=== PATIENT | male | born 1940 | race Caucasian/White ===

== ENCOUNTER → 2017-07-13 | Outpatient (CLI) | payer OTHER ==
--- NOTE | 2017-07-17 12:11 | MRI ---
MRI left hip without contrast Indication: Chronic left hip pain. History of prostate cancer. Comparison: None available Technique: Multiplanar, multi sequence MR images of the left hip were obtained without contrast. Findings: There are szey-ws-wnlvkcoh degenerative changes of both hips associated with moderate diffu se chondrosis. There is subchondral marrow edema involving the posterior superior left femoral head, partially extending into the femoral neck. No discrete osseous lesion, cortical disruption, or bony m alalignment appreciated. Remaining marrow signal is otherwise unremarkable. There is small left hip joint effusion. No large loose intra-articular body appreciated. The ligament um teres is not identified. Linear fluid signal is noted along the superior labrum, suggesting labral tear. No significant paralabral cyst. Anterior labral fraying also noted. Mild edema about the dista l gluteus minimus and medius tendons noted, which are otherwise grossly intact. Colonic diverticulosis noted. Lumbar spine findings reported separately. Impression: 1. Left hip DJD with joint effusion. Subchondral marrow edema of the posterior superior femoral head is nonspecific, but may be related to chondrosis. This would be an atypical location for stress react ion, although this is not excluded. 2. Superior labral tear with anterior labral fraying, likely degenerative. 3. Mild gluteus minimus and medius tendinosis. 4. Diverticulosis. Reported By:
--- NOTE | 2017-07-17 12:30 | MRI ---
MRI OF THE LUMBAR SPINE WITHOUT IV CONTRAST CLINICAL INDICATION: Chronic low back pain TECHNIQUE: Pre-contrast sagittal T1-, T2-, and T2-w fat-saturated images, and axial T1- and T2-w imag es of the lumbar spine. COMPARISON: None. FINDINGS: For purposes of this dictation, it is assumed that there are 5 ajb-eas-ywsvreu, lumbar-type vertebrae , and the most caudal fully segmented lumbar vertebra is labeled L5. The lumbar spine demonstrates normal alignment. Vertebral bodies are normal in height. Hemangiomas ca n be seen in L3 and L4. There are perineural root sleeve cysts bilaterally at T11-T12 and on the righ t at T12-L1 and on the left at L1-L2. There also likely perineural sleeve cysts in the sacrum bilater ally at approximately S2-S3. Multilevel degenerative disc disease. The conus medullaris terminates at a normal level and the nerve roots of the cauda equina appear normal. The included paraspinal soft t issues and retroperitoneal structures are grossly normal. Evaluation of the individual levels demonstrates: L1-2: Mild disc bulge without central stenosis. On moderate to severe right-sided neural foraminal st enosis secondary to facet hypertrophy. L2-3: Bilateral facet hypertrophy and ligament flavum redundancy resulting in mild central stenosis a nd moderate bilateral neural foraminal stenosis. L3-4: Disc bulge, facet hypertrophy and ligamentum flavum redundancy resulting in moderate central st enosis and moderate bilateral neural foraminal stenosis. L4-5: Disc bulge, facet hypertrophy and ligamentum flavum redundancy resulting in moderate central st enosis, severe right and moderate left neural foraminal stenosis. L5-S1: Small disc bulge without central stenosis. Severe left-sided neural foraminal stenosis. IMPRESSION: 1. Severe multilevel degenerative disc disease and facet arthropathy resulting in varying degrees of stenosis as above. 2. 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 Reported By:
== END | disposition home or self-care (01) ==
LOC: RAD 13:55
PROVIDERS: ATTEND Internal Medicine
DX: M54.5 Low back pain (principal); M25.552 Pain in left hip; M25.452 Effusion, left hip; S73.192A Other sprain of left hip, initial encounter; X58.XXXA Exposure to other specified factors, initial encounter; M76.02 Gluteal tendinitis, left hip; K57.90 Diverticulosis of intestine, part unspecified, without perforation or abscess without bleeding; M51.36 Other intervertebral disc degeneration, lumbar region; M12.88 Other specific arthropathies, not elsewhere classified, other specified site; M48.061 Spinal stenosis, lumbar region without neurogenic claudication; M16.12 Unilateral primary osteoarthritis, left hip
CPT/HCPCS: 72148; 73721

== ENCOUNTER 2017-12-14 08:02 | Day surgery (SDC) | payer OTHER ==
[2017-12-14] MEDS ORDERED: D5 LR 1000 ML 1,000 ML IV ONE (08:18)
[2017-12-14] MEDS ORDERED: NS 1000 ML 1,000 ML ONE (08:47)
[2017-12-14] MEDS ORDERED: DIPRIVAN VIAL 20 ML ONE (09:42)
[2017-12-14 10:39] VITALS: BP 127/66
== END 2017-12-14 10:40 | disposition home or self-care (01) ==
LOC: SURG1 08:02
PROVIDERS: ATTEND Internal Medicine Gastroenterology
PROC: 0DJD8ZZ Inspection of Lower Intestinal Tract, Via Natural or Artificial Opening Endoscopic (ICD-10-PCS; principal; 2017-12-14 09:00)
PROC: 0DBP8ZX Excision of Rectum, Via Natural or Artificial Opening Endoscopic, Diagnostic (ICD-10-PCS; principal; 2017-12-14 09:00)
PROC: 0DBN8ZX Excision of Sigmoid Colon, Via Natural or Artificial Opening Endoscopic, Diagnostic (ICD-10-PCS; principal; 2017-12-14 09:00)
DX: K63.5 Polyp of colon (principal); K57.30 Diverticulosis of large intestine without perforation or abscess without bleeding; K64.0 First degree hemorrhoids; Z86.010 Personal history of colon polyps
CPT/HCPCS: 99100; A4217; J3490; J7120

== ENCOUNTER 2019-03-04 13:57 | Observation (INO) ==
[2019-03-04 14:08] VITALS: BMI 27.2
[2019-03-04 14:43] LABS: BASOPHILS # (AUTO) 0.1 X10^3/uL (0.0-0.1); EOSINOPHILS # (AUTO) 0.1 x10^3/uL (0.0-0.2); EOSINOPHILS % (AUTO) 1.5 % (0.9-2.9); HEMATOCRIT 43.4 % (42.0-54.0); LYMPHOCYTES # (AUTO) 1.8 X10^3/uL (1.3-2.9); MEAN CORPUSCULAR HEMOGLOBIN 31.4 pg (27.0-34.0); MEAN CORPUSCULAR HGB CONC 34.6 g/dL (33.0-35.0); MEAN CORPUSCULAR VOLUME 90.6 fL (80.0-100.0); MEAN PLATELET VOLUME 8.3 fL (7.4-11.0); MONOCYTES # (AUTO) 0.6 x10^3/uL (0.3-0.8); NEUTROPHILS # (AUTO) 6.9 x10^3/uL (2.2-4.8); NEUTROPHILS % (AUTO) 72.5 % (42.0-75.0); PLATELET COUNT 227 X10^3/uL (150.0-450.0); RED BLOOD COUNT 4.79 X10^6/uL (4.7-6.0); RED CELL DISTRIBUTION WIDTH 13.5 % (11.6-16.5); WHITE BLOOD COUNT 9.6 X10^3/uL (3.6-10.0)
--- NOTE | 2019-03-04 14:44 | DR.SOBA ---
HPI Time Seen Time Seen by Provider: 03/04/19 14:17 Primary Care Physician Primary Care Physician: STERLING HPI Comment HPI Comment: PATIENT IS 79YR OLD WHITE MALE WITH HISTORY OF HYPERTENSION, DM AND PROSTATE CA HERE IN THE EMERGENCY ROOM WITH SOB AND CHEST PAIN SINCE MONDAY. TODAY , AROUND 11:00AM, PATIENT WAS PLANTING SOME VEGETABBLES, HE WAS WATERING THE PLANTS WHEN HE SUDDENLY BECAME DIZZY, DIAPHORETIC AND FELT FAINT.HE FINALLY WENT INSIDE AND SAT DOWN. HE STILL DONT FEEL HIS USUAL SELF. HE IS WEAK AND DRAIN OF ENERGY.HE DENIES FEVER AND DYSURIA, HE IS NAUSEATED BUT NOT VOMITING. Complaints Chief Complaint Doctors Comments: CHEST PAIN, SOB SINCE MONDAY. Chief Complaint:: PATIENT STATED THAT HE STARTED HAVING CHEST PAIN THAT STARTED MONDAY AND SHORTNESS OF BREATH. THE SOB BECAME WORSE WHEN DRIVING OVER FROM [employer]. HE ALSO STATED THAT HE BECAME DIZZY AND SWEATY WHILE OUTSIDE BETWEEN -. PT IS 100% ON ROOM AIR. Reviewed Nurses Notes Reviewed: Yes Source History Provided: Patient Mode of Arrival Mode of Arrival: Ambulatory Timing Onset of Chief Complaint: 03/01/19 Duration Duration: Days Context Onset:: With Light Exertion PE Risk Factors:: denies Recent Trauma, Recent Surgery and Immobilization PMH PMH Past Medical History: Yes Past Medical History: Diabetes and Hypertension Past Medical History Comment: PROSTATE CANCER Past Surgical History: Yes Surgical History: Ortho Surgery and Other Past Surgical History Comment: HERNIA REPAIR, PROSTATE CANCER REMOVED Family History History of Family Medical Conditions: No Social History Does patient currently use any type of tobacco product: No Have you used tobacco products in the last 12 months: No Type of Tobacco Use: None Does any household member use tobacco: No Alcohol Use: None Do you use any recreational Drugs:: No Lives With: Family Lives Where: Home infectious screening In the last 2 months have you had wt loss of >10#?: NO Have you had fever, night sweats or hemotysis?: No Have you traveled outside the country in the last 6 months?: No Isolation: Standard PE Vital Signs Vitals: Temperature 98.2 F Pulse Rate [Apical] 94 Pulse Rate 119 Respiratory Rate 15 Blood Pressure [Left Arm] 131/74 Blood Pressure 130/59 O2 Sat by Pulse Oximetry 96 ROR Labs Reviewed Result Diagrams: 03/04/19 14:35 03/04/19 14:35 Laboratory: WBC 9.6 X10^3/uL (3.6-10.0) 03/04/19 14:35 RBC 4.79 X10^6/uL (4.7-6.0) 03/04/19 14:35 Hgb 15.0 g/dL (13.5-18.0) 03/04/19 14:35 Hct 43.4 % (42.0-54.0) 03/04/19 14:35 MCV 90.6 fL (80.0-100.0) 03/04/19 14:35 MCH 31.4 pg (27.0-34.0) 03/04/19 14:35 MCHC 34.6 g/dL (33.0-35.0) 03/04/19 14:35 RDW 13.5 % (11.6-16.5) 03/04/19 14:35 Plt Count 227 X10^3/uL (150.0-450.0) 03/04/19 14:35 MPV 8.3 fL (7.4-11.0) 03/04/19 14:35 Neut % (Auto) 72.5 % (42.0-75.0) 03/04/19 14:35 Lymph % (Auto) 19.0 % (21.0-51.0) L 03/04/19 14:35 [place] % (Auto) 6.0 % (0.0-13.0) 03/04/19 14:35 Eos % (Auto) 1.5 % (0.9-2.9) 03/04/19 14:35 Baso % (Auto) 1.0 % (0.2-1.0) 03/04/19 14:35 Neut # (Auto) 6.9 x10^3/uL (2.2-4.8) H 03/04/19 14:35 Lymph # (Auto) 1.8 X10^3/uL (1.3-2.9) 03/04/19 14:35 [place] # (Auto) 0.6 x10^3/uL (0.3-0.8) 03/04/19 14:35 Eos # (Auto) 0.1 x10^3/uL (0.0-0.2) 03/04/19 14:35 Baso # (Auto) 0.1 X10^3/uL (0.0-0.1) 03/04/19 14:35 Absolute Nucleated RBC 0.0 /100WBC 03/04/19 14:35 D-Dimer 232 ng/mL (0-400) 03/04/19 14:35 Sodium 141 mmol/L (136-145) 03/04/19 14:35 Corrected Sodium 143 mmol/L (136-145) 03/04/19 14:35 Potassium 4.0 mmol/L (3.5-5.1) 03/04/19 14:35 Chloride 105 mmol/L (98-107) 03/04/19 14:35 Carbon Dioxide 27.9 mmol/L (21-32) 03/04/19 14:35 BUN 24 mg/dL (7-18) H 03/04/19 14:35 Creatinine 1.60 mg/dL (0.70-1.30) H 03/04/19 14:35 Est GFR (MDRD) Af Amer 54 (>60) L 03/04/19 14:35 Est GFR (MDRD) Non-Af 44 (>60) L 03/04/19 14:35 Glucose 173 mg/dL (65-99) H 03/04/19 14:35 Calcium 10.2 mg/dL (8.5-10.1) H 03/04/19 14:35 Corrected Calcium TNP 03/04/19 14:35 Total Bilirubin 0.60 mg/dL (0.2-1.0) 03/04/19 14:35 AST 12 Units/L (15-37) L 03/04/19 14:35 ALT 15 Units/L (12-78) 03/04/19 14:35 Alkaline Phosphatase 86 Units/L (46-116) 03/04/19 14:35 Creatine Kinase 54 Units/L (39-308) 03/04/19 14:35 CK-MB (CK-2) 1.0 ng/mL (0-4.0) 03/04/19 14:35 CK/CKMB % Calc 1.9 % (<4) 03/04/19 14:35 Troponin I < 0.02 ng/mL (0-1.5) 03/04/19 14:35 B-Natriuretic Peptide 122 pg/mL (0-79) H 03/04/19 14:35 Total Protein 6.8 g/dL (6.4-8.2) 03/04/19 14:35 Albumin 3.6 g/dL (3.4-5.0) 03/04/19 14:35 Globulin 3.2 g/dL (2.5-4.5) 03/04/19 14:35 Albumin/Globulin Ratio 1.1 Ratio (1.1-2.1) 03/04/19 14:35 Diagnosis Discharge Problem: SOB (shortness of breath), New onset atrial fibrillation Chest pain Qualifiers: Chest pain type: precordial pain Qualified Code(s): R07.2 - Precordial pain
--- NOTE | 2019-03-04 14:54 | RAD ---
HISTORY: Chest pain Study: Single-view chest Comparison: No Priors Findings: Trachea is midline. Heart size is upper normal with aortic uncoiling and atherosclerotic calcification the aortic arch. There is elevation of the right hemidiaphragm with very mild linear increased markings in the lung bases which may represent subsegmental foci of atelectasis. No dense consolidation, CHF, pleural fluid or pneumothorax is seen. Osseous structures are intact. There is multilevel thoracic spondylosis. IMPRESSION: Hypertensive configuration. Elevation of the left hemidiaphragm with bibasilar foci of subsegmental atelectasis. No dense consolidation, CHF, pleural fluid or pneumothorax is seen Reported By:
[2019-03-04 15:04] LABS: BLOOD UREA NITROGEN 24 mg/dL (7-18); CALCIUM 10.2 mg/dL (8.5-10.1); CARBON DIOXIDE 27.9 mmol/L (21-32); CHLORIDE 105 mmol/L (98-107); COR NA(FOR HYPERGLY) 143 mmol/L (136-145); SODIUM 141 mmol/L (136-145); TROPONIN I < 0.02 ng/mL (0-1.5); eGFR NON BLACK RACES 44 (>60)
[2019-03-04 15:08] LABS: ALANINE AMINOTRANSFERASE 15 Units/L (12-78); ALBUMIN 3.6 g/dL (3.4-5.0); ALKALINE PHOSPHATASE 86 Units/L (46-116); ASPARTATE AMINO TRANSFERASE 12 Units/L (15-37); CKMB % 1.9 % (<4); CREATINE KINASE 54 Units/L (39-308); TOTAL PROTEIN 6.8 g/dL (6.4-8.2)
[2019-03-04 15:10] LABS: B-TYPE NATRIURETIC PEPTIDE 122 pg/mL (0-79)
[2019-03-04] MEDS ORDERED: NORCO 7.5/325 MG TAB PO PRN (17:57)
[2019-03-04] MEDS ORDERED: NS 1000 ML 1,000 ML IV SCH (18:00)
[2019-03-04 19:21] LABS: BILIRUBIN,URINE NEGATIVE (NEGATIVE); BLOOD/HEMOGLOBIN,URINE NEGATIVE (NEGATIVE); GLUCOSE, URINE NEGATIVE (NEGATIVE); KETONES,URINE NEGATIVE (NEGATIVE); LEUKOCYTE ESTERASE ,URINE 1+ (NEGATIVE); NITRITES,URINE NEGATIVE (NEGATIVE); PROTEIN,URINE 1+ (NEGATIVE); UROBILINOGEN,URINE 1+ (NORMAL)
[2019-03-04 19:22] LABS: APPEARANCE,URINE SLIGHTLY HAZY (CLEAR); COLOR,URINE YELLOW (YELLOW)
[2019-03-04 19:27] LABS: BACTERIA,URINE TRACE /HPF (NEGATIVE); MUCUS,URINE MODERATE /HPF (NEGATIVE); RBC,URINE 0-2 /HPF (NONE SEEN); SQUAMOUS EPITHELIAL CELL,UR NEGATIVE /HPF (NEGATIVE)
[2019-03-04] MEDS ORDERED: LIPITOR TAB 10 MG PO SCH (21:00)
[2019-03-04] MEDS ORDERED: FLOMAX PO SCH (21:00)
[2019-03-04 21:12] LABS: CKMB % 2.6 % (<4); CREATINE KINASE 43 Units/L (39-308); CREATINE KINASE MB 1.1 ng/mL (0-4.0); TROPONIN I < 0.02 ng/mL (0-1.5)
[2019-03-04] MEDS: GLUCOPHAGE XR PO SCH (21:14)
[2019-03-05 02:57] LABS: CKMB % 2.4 % (<4); CREATINE KINASE 41 Units/L (39-308); CREATINE KINASE MB < 1.0 ng/mL (0-4.0); TROPONIN I < 0.02 ng/mL (0-1.5)
[2019-03-05 05:21] LABS: BASOPHILS # (AUTO) 0.1 X10^3/uL (0.0-0.1); EOSINOPHILS # (AUTO) 0.2 x10^3/uL (0.0-0.2); EOSINOPHILS % (AUTO) 2.1 % (0.9-2.9); HEMATOCRIT 41.8 % (42.0-54.0); HEMOGLOBIN 14.5 g/dL (13.5-18.0); LYMPHOCYTES # (AUTO) 2.8 X10^3/uL (1.3-2.9); LYMPHOCYTES % (AUTO) 34.1 % (21.0-51.0); MEAN CORPUSCULAR HEMOGLOBIN 31.5 pg (27.0-34.0); MEAN CORPUSCULAR HGB CONC 34.7 g/dL (33.0-35.0); MEAN CORPUSCULAR VOLUME 90.8 fL (80.0-100.0); MEAN PLATELET VOLUME 9.1 fL (7.4-11.0); MONOCYTES # (AUTO) 0.7 x10^3/uL (0.3-0.8); MONOCYTES % (AUTO) 8.4 % (0.0-13.0); NEUTROPHILS # (AUTO) 4.4 x10^3/uL (2.2-4.8); NEUTROPHILS % (AUTO) 54.4 % (42.0-75.0); PLATELET COUNT 191 X10^3/uL (150.0-450.0); RED BLOOD COUNT 4.61 X10^6/uL (4.7-6.0); RED CELL DISTRIBUTION WIDTH 13.8 % (11.6-16.5); WHITE BLOOD COUNT 8.1 X10^3/uL (3.6-10.0)
[2019-03-05 05:30] LABS: ALANINE AMINOTRANSFERASE 15 Units/L (12-78); ALBUMIN 3.2 g/dL (3.4-5.0); ALKALINE PHOSPHATASE 78 Units/L (46-116); ASPARTATE AMINO TRANSFERASE 11 Units/L (15-37); BLOOD UREA NITROGEN 22 mg/dL (7-18); CALCIUM 9.6 mg/dL (8.5-10.1); CARBON DIOXIDE 32.9 mmol/L (21-32); CHLORIDE 106 mmol/L (98-107); CHOL/HDL RATIO 2.7 (0.0-5.0); CHOLESTEROL 116 mg/dL (0-200); COR CA(FOR HYPOALB) 10.2 mg/dL (8.5-10.1); COR NA(FOR HYPERGLY) 144 mmol/L (136-145); CREATININE 1.35 mg/dL (0.70-1.30); HDL CHOLESTEROL 43 mg/dL (40-60); SODIUM 143 mmol/L (136-145); TOTAL PROTEIN 6.2 g/dL (6.4-8.2); TRIGLYCERIDES 66 mg/dL (0-150); eGFR NON BLACK RACES 54 (>60)
[2019-03-05 05:38] LABS: CKMB % 2.5 % (<4); CREATINE KINASE 40 Units/L (39-308); TROPONIN I < 0.02 ng/mL (0-1.5)
[2019-03-05] MEDS ORDERED: ASPIRIN EC 81 MG PO SCH (09:00)
[2019-03-05] MEDS ORDERED: HYZAAR 50/12.5 MG PO SCH (09:00)
[2019-03-05] MEDS ORDERED: NORVASC TAB 10 MG PO SCH (09:00)
[2019-03-05] MEDS ORDERED: COREG TAB 3.125 MG PO SCH (09:00)
--- NOTE | 2019-03-05 10:20 | DR.CARTERS ---
Short Stay Summary - Admission Date Date of Admission: 03/04/19 - Discharge Date Discharge Date: 03/05/19 - Admission Diagnoses (1) Chest pain Status: Acute (2) SOB (shortness of breath) Status: Acute (3) New onset atrial fibrillation Status: Acute - Hospital Course Hospital Course: IS A 79 YEAR OLD PATIENT OF OURS WHO PRESENTED TO THE ER WITH COMPLAINTS OF CHEST PAIN AND SHORTNESS OF BREATH. SYMPTOMS STARTED THREE DAYS AGO AND HAVE PROGRESSIVELY GOTTEN WORSE. HE ALSO REPORTS BECOMING DIZZINESS, DIAPHORETIC, AND FEELING FAINT. PATIENT STATES THAT HE WAS OUTSIDE PLANTING VEGETABLES WHEN SYMPTOMS BECAME WORSE TODAY. ON ARRIVAL, VITALS WERE 98.8-493-28-100%-130/59. LABS WERE OBTAINED. ABNORMAL LAB VALUES INCLUDED THE FOLLOWING: BUN 24, CREATININE 1.60, GLUCOSE 173, CALCIUM 10.2, AST 12, BNP 122. CARDIAC ENZYMES WITHIN NORMAL LIMITS. AN EKG WAS OBTAINED AND REVEALED: ATRIAL FIBRILLATION WITH HR 108. CHEST XRAY REVEALED: Hypertensive configuration. Elevation of the left hemidiaphragm with bibasilar foci of subsegmental atelectasis. No dense consolidation, CHF, pleural fluid or pneumothorax is seen. HE WAS ADMITTED TO THE HOSPITAL FOR FURTHER EVALUATION AND TREATMENT OF CHEST PAIN, SHORTNESS OF BREATH, AND NEW ONSET A-FIB. WE STARTED NORMAL SALINE AT 50ML/HR, RESUMED HOME MEDICATIONS, AND WILL PLACE HIM ON THE CORRESPONDENCE DICTATOR. OTHERWISE, WE PLAN TO FOLLOW UP WITH AM LABS AND CONTINUE TO MONITOR. ON THE MORNING FOLLOWING ADMISSION, PATIENT IS ALERT AND ORIENTED, LYING IN BED ON MORNING ROUNDS. HE REPORTS FEELING WELL. HE DENIES CHEST PAIN OR SHORTNESS OF BREATH. ON EXAMINATION, HE IS NOTED WITH ATRIAL FIBRILLATION ON AUSCULTATION, NORMAL RATE. BILATERAL LUNGS ARE CLEAR TO AUSCULTATION. ABDOMEN IS ROUND, SOFT, AND NON-TENDER. HIS VITALS THIS MORNING ARE 98.7-96-22-97%-125/72. ABNORMAL LAB VALUES INCLUDE THE FOLLOWING: RBC 4.61, HCT 41.8, CARBON DIOXIDE 32.9, BUN 22, CREATININE 1.35, GLUCOSE 146, CORRECTED CALCIUM 10.2, AST 11, TOTAL PROTEIN 6.2, ALBUMIN 3.2. CARDIAC ENZYMES WITHIN NORMAL LIMITS. THIS MORNINGS EKG REVEALED: ATRIAL FIBRILLATION WITH HR 108. - Discharge Medications Discharge Medications: Home Medication List amlodipine 10 mg PO DAILY 03/04/19 [History] hydrocodone-acetaminophen [[place]] 0.5 - 1 tab PO BID PRN 03/04/19 [History] losartan-hydrochlorothiazide 1 tab PO DAILY 03/04/19 [History] metformin 1,000 mg PO BID 03/04/19 [History] tamsulosin 0.4 mg PO HS 03/04/19 [History] aspirin [Ecotrin] 325 mg PO QDAY #90 tab 03/05/19 [Rx] losartan-hydrochlorothiazide [Hyzaar] 1 tab PO QDAY #30 tab 03/05/19 [Rx] metformin 500 mg PO BID #60 tab 03/05/19 [Rx] metoprolol succinate [Toprol XL] 25 mg PO QDAY #30 tab 03/05/19 [Rx] verapamil 120 mg PO QDAY #30 tab 03/05/19 [Rx] Prescriptions: aspirin [Ecotrin] Chad George losartan-hydrochlorothiazide [Hyzaar] Chad George metformin Chad George metoprolol succinate [Toprol XL] Chad George verapamil Chad George - Discharge Plan Disposition: HOME, SELF-CARE Condition: Stable Prescriptions: aspirin [Ecotrin] 325 mg PO QDAY #90 tab losartan-hydrochlorothiazide [Hyzaar] 1 tab PO QDAY #30 tab metformin 500 mg PO BID #60 tab metoprolol succinate [Toprol XL] 25 mg PO QDAY #30 tab verapamil 120 mg PO QDAY #30 tab - Follow up/Referrals Follow up/Referrals: Chad George [Primary Care Provider] - 1 WEEK - Instructions Additional Instructions: DIET TOLERATED. ACTIVITY TOLERATED. Forms: Patient Portal
[2019-03-05] MEDS: GLUCOPHAGE XR PO SCH (11:35)
[2019-03-05 15:50] VITALS: BP 141/67
== END 2019-03-05 16:15 | disposition home or self-care (01) ==
LOC: ER 13:57 → ICU 13:57
PROVIDERS: ADMIT Internal Medicine; ATTEND Internal Medicine
DX: E11.65 Type 2 diabetes mellitus with hyperglycemia; I48.91 Unspecified atrial fibrillation; R06.02 Shortness of breath; R94.31 Abnormal electrocardiogram [ECG] [EKG]; R94.4 Abnormal results of kidney function studies; I10 Essential (primary) hypertension; R42 Dizziness and giddiness; R07.2 Precordial pain; Z79.899 Other long term (current) drug therapy
CPT/HCPCS: 36415; 71010; 71045; 80053; 80061; 81001; 82550; 82553; 83880; 84484; 85025; 85378; 85610; 85730; 93005; 93306; 96365; 99284; A4222; G0378; J7030

== ENCOUNTER 2021-09-27 12:58 | Observation (INO) ==
[2021-09-27] MEDS ORDERED: TORADOL 30 MG VIAL IVP PRN (17:18)
[2021-09-27] MEDS ORDERED: ZOSYN VIAL 3.375 GRAMS 3.375 G in NS 100 ML IV + SPIKE MINIBAG* 100 ML IV SCH (17:18)
[2021-09-27 17:56] LABS: BASOPHILS # (AUTO) 0.1 X10^3/uL (0.0-0.1); BASOPHILS % (AUTO) 1.2 % (0.2-1.0); EOSINOPHILS # (AUTO) 0.3 x10^3/uL (0.0-0.2); EOSINOPHILS % (AUTO) 3.8 % (0.9-2.9); HEMATOCRIT 41.3 % (42.0-54.0); HEMOGLOBIN 13.7 g/dL (13.5-18.0); LYMPHOCYTES # (AUTO) 1.5 X10^3/uL (1.3-2.9); LYMPHOCYTES % (AUTO) 19.4 % (21.0-51.0); MEAN CORPUSCULAR HEMOGLOBIN 27.7 pg (27.0-34.0); MEAN CORPUSCULAR HGB CONC 33.1 g/dL (33.0-35.0); MEAN CORPUSCULAR VOLUME 83.7 fL (80.0-100.0); MEAN PLATELET VOLUME 8.2 fL (7.4-11.0); MONOCYTES # (AUTO) 0.7 x10^3/uL (0.3-0.8); MONOCYTES % (AUTO) 8.9 % (0.0-13.0); NEUTROPHILS # (AUTO) 5.3 x10^3/uL (2.2-4.8); NEUTROPHILS % (AUTO) 66.7 % (42.0-75.0); PLATELET COUNT 243 X10^3/uL (150.0-450.0); RED BLOOD COUNT 4.94 X10^6/uL (4.7-6.0); RED CELL DISTRIBUTION WIDTH 15.3 % (11.6-16.5); WHITE BLOOD COUNT 7.9 X10^3/uL (3.6-10.0)
[2021-09-27 18:10] LABS: ALBUMIN 3.3 g/dL (3.4-5.0); CALCIUM 9.5 mg/dL (8.5-10.1); CARBON DIOXIDE 27.9 mmol/L (21-32); COR CA(FOR HYPOALB) 10.1 mg/dL (8.5-10.1); CREATININE 1.67 mg/dL (0.70-1.30); TOTAL PROTEIN 7.5 g/dL (6.4-8.2)
[2021-09-27 18:15] VITALS: BMI 27.7
[2021-09-27] MEDS: NS 1,000 ML IV 1,000 ML IV SCH (18:28)
[2021-09-27] MEDS: ZOSYN VIAL 3.375 GRAMS 3.375 G in NS 100 ML IV + SPIKE MINIBAG* 100 ML IV SCH (21:07)
[2021-09-28] MEDS: ZOSYN VIAL 3.375 GRAMS 3.375 G in NS 100 ML IV + SPIKE MINIBAG* 100 ML IV SCH ×3 (05:09→21:11)
[2021-09-28 05:21] LABS: BASOPHILS # (AUTO) 0.1 X10^3/uL (0.0-0.1); BASOPHILS % (AUTO) 1.1 % (0.2-1.0); EOSINOPHILS # (AUTO) 0.3 x10^3/uL (0.0-0.2); EOSINOPHILS % (AUTO) 4.8 % (0.9-2.9); HEMATOCRIT 36.2 % (42.0-54.0); HEMOGLOBIN 12.2 g/dL (13.5-18.0); LYMPHOCYTES # (AUTO) 1.5 X10^3/uL (1.3-2.9); LYMPHOCYTES % (AUTO) 20.2 % (21.0-51.0); MEAN CORPUSCULAR HEMOGLOBIN 27.8 pg (27.0-34.0); MEAN CORPUSCULAR HGB CONC 33.6 g/dL (33.0-35.0); MEAN CORPUSCULAR VOLUME 82.9 fL (80.0-100.0); MEAN PLATELET VOLUME 8.2 fL (7.4-11.0); MONOCYTES # (AUTO) 0.6 x10^3/uL (0.3-0.8); MONOCYTES % (AUTO) 8.5 % (0.0-13.0); NEUTROPHILS # (AUTO) 4.7 x10^3/uL (2.2-4.8); NEUTROPHILS % (AUTO) 65.4 % (42.0-75.0); PLATELET COUNT 224 X10^3/uL (150.0-450.0); RED BLOOD COUNT 4.37 X10^6/uL (4.7-6.0); RED CELL DISTRIBUTION WIDTH 15.1 % (11.6-16.5); WHITE BLOOD COUNT 7.3 X10^3/uL (3.6-10.0)
[2021-09-28 05:33] LABS: ALANINE AMINOTRANSFERASE 12 Units/L (12-78); ALBUMIN 2.5 g/dL (3.4-5.0); ALKALINE PHOSPHATASE 74 Units/L (46-116); ASPARTATE AMINO TRANSFERASE 14 Units/L (15-37); BLOOD UREA NITROGEN 17 mg/dL (7-18); CALCIUM 8.4 mg/dL (8.5-10.1); CARBON DIOXIDE 27.2 mmol/L (21-32); CHLORIDE 105 mmol/L (98-107); COR CA(FOR HYPOALB) 9.6 mg/dL (8.5-10.1); COR NA(FOR HYPERGLY) 138 mmol/L (136-145); CREATININE 1.42 mg/dL (0.70-1.30); SODIUM 138 mmol/L (136-145); TOTAL PROTEIN 5.9 g/dL (6.4-8.2); eGFR NON BLACK RACES 51 (>60)
[2021-09-28] MEDS: NS 1,000 ML IV 1,000 ML IV SCH ×2 (06:35→19:57)
--- NOTE | 2021-09-28 08:08 | VAS ---
HISTORYRT ARM SWELLING/PAINSTUDYUPPER EXT VENOUS, UNILATERALCOMPARISONNoneTECHNIQUEMultipl e burger scale and color flow Doppler images of the deep venous system were obtained of the right upper extremity.FINDINGSThe deep venous system of the right upper extremity and right jugular vein were examined with Doppler ultrasound. Normal color flow and augmentation can be observed in the right jugular vein right subclavian vein axillary vein brachial vein radial and ulnar veins.. In addition, normal compression is seen throughout the deep venous system.IMPRESSIONNegative for DVT in the right upper extremity and in the right jugular vein.Electronically signed by: MANISH YUEN (Sep 28, 2021 08:07:19)
--- NOTE | 2021-09-28 08:39 | DR.UPDATE ---
H&P Update History and Physical Update: History and Physical reviewed and patient examined. Changes noted: Yes with the following: HAS BEEN TREATED IN THE OFFICE FOR THE PAST WEEK FOR RIGHT UPPER EXTREMITY CELLULITIS. HE WAS PLACED ON BACTRIM DS 1 TABLET TWICE A DAY ON 09/21/21. HE DENIES IMPROVEMENT IN SYMPTOMS DESPITE COMPLIANCE WITH MEDICATIONS. HE WAS ADMITTED TO THE HOSPITAL FOR FURTHER EVALUATION AND TREATMENT. ON ARRIVAL TO THE HOSPITAL, HIS VITALS WERE 98.1-67-20-95%-149/67. LABS WERE OBTAINED. WBC WITHIN NORMAL LIMITS. ABNORMAL LAB VALUES INCLUDE THE FOLLOWING: HCT 41.3, BUN 19, CREATININE 1.67, GLUCOSE 111, AST 13, CRP 36.20, ALBUMIN 3.3. COVID-19 NEGATIVE. BLOOD CULTURE WAS SET UP. A VENOUS DOPPLER OF THE RIGHT UPPER EXTREMITY WAS OBTAINED AND REVEALED: Negative for DVT in the right upper extremity and in the right jugular vein. HE WAS STARTED ON NORMAL SALINE AT 80 ML/HR, ZOSYN 3.375G IV TID, TORADOL 30MG IV Q8H PRN. WE WILL REVIEW HIS HOME MEDICATIONS AND RESUME APPROPRIATE. OTHERWISE, WE PLAN TO FOLLOW UP WITH AM LABS AND CONTINUE TO MONITOR. TIME SPENT ON CLINICAL ASSESSMENT, REVIEWING LABS AND IMAGING, DECISION MAKING, AND DOCUMENTATION GREATER THAN 75 MINUTES. Prescription drug monitoring program results: PDMP was not reviewed H&P Reviewed: Yes Patient was examined?: Yes
[2021-09-28] MEDS ORDERED: NORCO 7.5/325 MG TAB PO PRN (08:40)
[2021-09-28] MEDS: PROTONIX TAB 40 MG PO SCH ×2 (09:32→20:43)
[2021-09-28] MEDS: NORVASC TAB 5 MG PO SCH (09:32)
[2021-09-28] MEDS: LOVENOX INJ 40 MG SYR SC SCH (09:32)
[2021-09-28] MEDS: HYZAAR 50/12.5 MG PO SCH (10:41)
[2021-09-28] MEDS: TOPROL XL PO SCH (10:41)
[2021-09-28] MEDS: OXYBUTYNIN CHLORIDE ER PO SCH (10:41)
[2021-09-28] MEDS: BENADRYL CAP/TAB 25 MG PO SCH ×3 (10:41→20:42)
--- NOTE | 2021-09-28 10:55 | RAD ---
HISTORYRIGHT ARM PAIN/CELLULITISSTUDYHUMERUS, RIGHT x-ray two viewsCOMPARISONNoneFINDINGSNo fracture or dislocation.Likely subcutaneous edema in the lower arm near the elbow. No gas or radiopaque foreign body is seen.No arthritic change are seen.IMPRESSIONSoft tissue swelling is likely present in the lower arm without evidence of bony abnormality.Electronically signed by: Everton Cullen (Sep 28, 2021 10:53:50)
--- NOTE | 2021-09-28 10:56 | RAD ---
HISTORYPain cellulitisSTUDYRight forearm two viewsCOMPARISONRight elbow 06/09/2019FINDINGSNormal appearance right radius and ulna without evidence for fracture, osteomyelitis or other acute abnormality. Small olecranon enthesophyte incidentally noted.IMPRESSIONNo acute osseous abnormality demonstrated right forearm.Electronically signed by: SHANI IRIZARRY (Sep 28, 2021 10:55:43)
[2021-09-28] MEDS ORDERED: FLOMAX PO SCH (21:00)
[2021-09-28] MEDS ORDERED: LIPITOR TAB 10 MG PO SCH (21:00)
[2021-09-29 04:54] LABS: BASOPHILS # (AUTO) 0.1 X10^3/uL (0.0-0.1); BASOPHILS % (AUTO) 1.2 % (0.2-1.0); EOSINOPHILS # (AUTO) 0.5 x10^3/uL (0.0-0.2); EOSINOPHILS % (AUTO) 7.6 % (0.9-2.9); HEMATOCRIT 36.7 % (42.0-54.0); HEMOGLOBIN 12.3 g/dL (13.5-18.0); LYMPHOCYTES # (AUTO) 1.8 X10^3/uL (1.3-2.9); LYMPHOCYTES % (AUTO) 26.3 % (21.0-51.0); MEAN CORPUSCULAR HGB CONC 33.6 g/dL (33.0-35.0); MEAN CORPUSCULAR VOLUME 83.4 fL (80.0-100.0); MEAN PLATELET VOLUME 8.2 fL (7.4-11.0); MONOCYTES # (AUTO) 0.6 x10^3/uL (0.3-0.8); MONOCYTES % (AUTO) 9.1 % (0.0-13.0); NEUTROPHILS # (AUTO) 3.9 x10^3/uL (2.2-4.8); NEUTROPHILS % (AUTO) 55.8 % (42.0-75.0); PLATELET COUNT 206 X10^3/uL (150.0-450.0); WHITE BLOOD COUNT 6.9 X10^3/uL (3.6-10.0)
[2021-09-29] MEDS: ZOSYN VIAL 3.375 GRAMS 3.375 G in NS 100 ML IV + SPIKE MINIBAG* 100 ML IV SCH (05:03)
[2021-09-29 05:07] LABS: ALANINE AMINOTRANSFERASE 11 Units/L (12-78); ALBUMIN 2.5 g/dL (3.4-5.0); ALKALINE PHOSPHATASE 71 Units/L (46-116); ASPARTATE AMINO TRANSFERASE 12 Units/L (15-37); BLOOD UREA NITROGEN 14 mg/dL (7-18); CALCIUM 8.3 mg/dL (8.5-10.1); CARBON DIOXIDE 24.4 mmol/L (21-32); CHLORIDE 106 mmol/L (98-107); COR CA(FOR HYPOALB) 9.5 mg/dL (8.5-10.1); COR NA(FOR HYPERGLY) 137 mmol/L (136-145); CREATININE 1.41 mg/dL (0.70-1.30); SODIUM 137 mmol/L (136-145); TOTAL PROTEIN 5.8 g/dL (6.4-8.2); eGFR NON BLACK RACES 51 (>60)
--- NOTE | 2021-09-29 08:34 | PCM.PROG ---
Progress Note - Progress Note for Day of Date of Exam: 09/28/21 - Subjective Subjective: WAS ADMITTED FOR TREATMENT OF RIGHT UPPER EXTREMITY CELLULITIS. TODAY, HE IS ALERT AND ORIENTED, LYING IN BED ON MORNING ROUNDS. HE CONTINUES WITH PAIN TO THE LEFT ARM. ON EXAMINATION, HEART IS REGULAR IN RATE AND RHYTHM. BILATERAL LUNGS ARE CLEAR TO AUSCULTATION. ABDOMEN IS ROUND, SOFT, AND NON-TENDER WITH NORMAL BOWEL SOUNDS NOTED IN ALL QUADRANTS. ERYTHEMA AND EDEMA TO RIGHT ARM HAVE MARKEDLY DECREASED SINCE ADMISSION. HIS VITALS THIS MORNING ARE: 97.9-61-20-94%-145/72. LABS WERE OBTAINED. ABNORMAL LAB VALUES INCLUDE THE FOLLOWING: RBC 4.37, HGB 12.2, HCT 36.2, CREATININE 1.42, GLUCOSE 112, CALCIUM 8.4, AST 14, TOTAL PROTEIN 5.9, ALBUMIN 2.5. BLOOD CULTURE IS PENDING. WE OBTAINED A FOREARM XRAY TODAY. IT REVEALED: No acute osseous abnormality demonstrated right forearm. HUMERUS XRAY REVEALED: Soft tissue swelling is likely present in the lower arm without evidence of bony abnormality. HE IS CURRENTLY RECEIVING NORMAL SALINE AT 80 ML/HR, ZOSYN 3.375G IV TID, TORADOL 30MG IV Q8H PRN, AND HIS HOME MEDICATIONS WERE RESUMED. WE WILL CONTINUE WITH CURRENT PLAN OF CARE TODAY. OTHERWISE, WE PLAN TO FOLLOW UP WITH AM LABS AND CONTINUE TO MONITOR. TIME SPENT ON CLINICAL ASSESSMENT, REVIEWING LABS AND IMAGING, DECISION MAKING, AND DOCUMENTATION GREATER THAN 45 MINUTES. - Past Medical Family Social History Past Med/Fam/Surg Hx: No changes since H&P Allergies: Allergies No Known Drug Allergies Allergy (Verified 08/17/21 07:59) - Review of Systems ROS: No change since H&P - Vital Signs and I&O's Vital Signs: Temperature 98.3 F Pulse Rate [Left Radial] 54 Respiratory Rate 20 Blood Pressure [Left Arm] 159/75 Blood Pressure 158/80 O2 Sat by Pulse Oximetry 97 Intake and Output: Intake & Output 09/26/21 09/27/21 09/28/21 09/29/21 11:59 11:59 11:59 11:59 Intake Total 1530 / 1530 4442 / 4442 Output Total 403 / 403 1750 / 1750 Balance 1127 / 1127 2692 / 2692 - Physical Exam Oriented: Normal Eyes: Normal Ear: Normal Nose: Normal Throat: Normal Respiratory: Normal Cardiovascular: Normal : Normal Auscultation: Bowel Sounds: Normal Palpation: Normal Tenderness: Normal Skin: Red (RIGHT ARM ), Tender, Hot Musculoskeletal: Right, Arm, Swelling, Tender Psychiatric: Normal Mood Description: Calm Affect: Normal Speech Pattern: Clear, Appropriate - Laboratory and Diagnostics Result Diagrams: 09/29/21 04:25 09/29/21 04:25 Labs: Laboratory WBC 6.9 X10^3/uL (3.6-10.0) 09/29/21 04:25 RBC 4.40 X10^6/uL (4.7-6.0) L 09/29/21 04:25 Hgb 12.3 g/dL (13.5-18.0) L 09/29/21 04:25 Hct 36.7 % (42.0-54.0) L 09/29/21 04:25 MCV 83.4 fL (80.0-100.0) 09/29/21 04:25 MCH 28.0 pg (27.0-34.0) 09/29/21 04:25 MCHC 33.6 g/dL (33.0-35.0) 09/29/21 04:25 RDW 15.0 % (11.6-16.5) 09/29/21 04:25 Plt Count 206 X10^3/uL (150.0-450.0) 09/29/21 04:25 MPV 8.2 fL (7.4-11.0) 09/29/21 04:25 Neut % (Auto) 55.8 % (42.0-75.0) 09/29/21 04:25 Lymph % (Auto) 26.3 % (21.0-51.0) 09/29/21 04:25 [place] % (Auto) 9.1 % (0.0-13.0) 09/29/21 04:25 Eos % (Auto) 7.6 % (0.9-2.9) H 09/29/21 04:25 Baso % (Auto) 1.2 % (0.2-1.0) H 09/29/21 04:25 Neut # (Auto) 3.9 x10^3/uL (2.2-4.8) 09/29/21 04:25 Lymph # (Auto) 1.8 X10^3/uL (1.3-2.9) 09/29/21 04:25 [place] # (Auto) 0.6 x10^3/uL (0.3-0.8) 09/29/21 04:25 Eos # (Auto) 0.5 x10^3/uL (0.0-0.2) H 09/29/21 04:25 Baso # (Auto) 0.1 X10^3/uL (0.0-0.1) 09/29/21 04:25 Absolute Nucleated RBC 0.0 /100WBC 09/29/21 04:25 Sodium 137 mmol/L (136-145) 09/29/21 04:25 Corrected Sodium 137 mmol/L (136-145) 09/29/21 04:25 Potassium 3.8 mmol/L (3.5-5.1) 09/29/21 04:25 Chloride 106 mmol/L (98-107) 09/29/21 04:25 Carbon Dioxide 24.4 mmol/L (21-32) 09/29/21 04:25 BUN 14 mg/dL (7-18) 09/29/21 04:25 Creatinine 1.41 mg/dL (0.70-1.30) H 09/29/21 04:25 Est GFR (MDRD) Af Amer > 60 (>60) 09/29/21 04:25 Est GFR (MDRD) Non-Af 51 (>60) L 09/29/21 04:25 Glucose 117 mg/dL (65-99) H 09/29/21 04:25 Calcium 8.3 mg/dL (8.5-10.1) L 09/29/21 04:25 Corrected Calcium 9.5 mg/dL (8.5-10.1) 09/29/21 04:25 Total Bilirubin 0.50 mg/dL (0.2-1.0) 09/29/21 04:25 AST 12 Units/L (15-37) L 09/29/21 04:25 ALT 11 Units/L (12-78) L 09/29/21 04:25 Alkaline Phosphatase 71 Units/L (46-116) 09/29/21 04:25 C-Reactive Protein 36.20 mg/L (0-3.0) H 09/27/21 17:40 Total Protein 5.8 g/dL (6.4-8.2) L 09/29/21 04:25 Albumin 2.5 g/dL (3.4-5.0) L 09/29/21 04:25 Globulin 3.3 g/dL (2.5-4.5) 09/29/21 04:25 Albumin/Globulin Ratio 0.8 Ratio (1.1-2.1) L 09/29/21 04:25 SARS CoV-2 RNA Rapid SARAH Negative (NEGATIVE) 09/27/21 15:32 - Plan (1) Cellulitis of right upper extremity Status: Acute Plan: NORMAL SALINE AT 80 ML/HR, ZOSYN 3.375G IV TID, TORADOL 30MG IV Q8H PRN, AND HIS HOME MEDICATIONS WERE RESUMED.
[2021-09-29] MEDS: PROTONIX TAB 40 MG PO SCH (08:48)
[2021-09-29] MEDS: TOPROL XL PO SCH ×2 (08:48→08:53)
[2021-09-29] MEDS: HYZAAR 50/12.5 MG PO SCH (08:49)
[2021-09-29] MEDS: OXYBUTYNIN CHLORIDE ER PO SCH (08:49)
[2021-09-29] MEDS: NORVASC TAB 5 MG PO SCH (08:49)
[2021-09-29] MEDS: NS 1,000 ML IV 1,000 ML IV SCH (09:06)
[2021-09-29] MEDS: LOVENOX INJ 40 MG SYR SC SCH (09:06)
[2021-09-29 09:16] VITALS: BP 156/76
== END 2021-09-29 12:28 | disposition home or self-care (01) ==
LOC: MED/SURG
PROVIDERS: ADMIT Internal Medicine; ATTEND Internal Medicine
DX: K21.9 Gastro-esophageal reflux disease without esophagitis; Z20.822 Contact with and (suspected) exposure to COVID-19; E11.65 Type 2 diabetes mellitus with hyperglycemia; L03.113 Cellulitis of right upper limb; R94.4 Abnormal results of kidney function studies; M79.601 Pain in right arm; I10 Essential (primary) hypertension; R79.82 Elevated C-reactive protein (CRP)

== ENCOUNTER 2024-06-01 14:25 | Observation (INO) ==
[2024-06-01 15:21] LABS: BASOPHILS # (AUTO) 0.1 X10^3/uL (0.0-0.1); HEMOGLOBIN 12.7 g/dL (13.5-18.0); MEAN PLATELET VOLUME 9.5 fL (7.4-11.0); MONOCYTES # (AUTO) 0.4 x10^3/uL (0.3-0.8); MONOCYTES % (AUTO) 4.1 % (0.0-13.0); RED CELL DISTRIBUTION WIDTH 15.1 % (11.6-16.5); WHITE BLOOD COUNT 8.7 X10^3/uL (3.6-10.0)
[2024-06-01 15:24] LABS: BASOPHILS % (AUTO) 0.9 % (0.2-1.0); EOSINOPHILS % (AUTO) 0.2 % (0.9-2.9); HEMATOCRIT 38.2 % (42.0-54.0); LYMPHOCYTES # (AUTO) 0.2 X10^3/uL (1.3-2.9); LYMPHOCYTES % (AUTO) 2.7 % (21.0-51.0); MEAN CORPUSCULAR HEMOGLOBIN 31.5 pg (27.0-34.0); MEAN CORPUSCULAR HGB CONC 33.1 g/dL (33.0-35.0); NEUTROPHILS % (AUTO) 92.1 % (42.0-75.0); PLATELET COUNT 116 X10^3/uL (150.0-450.0); RED BLOOD COUNT 4.02 X10^6/uL (4.7-6.0)
[2024-06-01 15:29] LABS: ALANINE AMINOTRANSFERASE 22 Units/L (12-78); ALBUMIN 3.6 g/dL (3.4-5.0); ALKALINE PHOSPHATASE 95 Units/L (46-116); ASPARTATE AMINO TRANSFERASE 17 Units/L (15-37); BLOOD UREA NITROGEN 18 mg/dL (7-18); CALCIUM 9.5 mg/dL (8.5-10.1); CARBON DIOXIDE 29.9 mmol/L (21-32); CHLORIDE 102 mmol/L (98-107); COR NA(FOR HYPERGLY) 141 mmol/L (136-145); GLUCOSE 200 mg/dL (65-99); SODIUM 139 mmol/L (136-145); TOTAL PROTEIN 6.8 g/dL (6.4-8.2); eGFR NON BLACK RACES 56 (>60)
[2024-06-01 15:47] LABS: PLATELET MORPHOLOGY COMMENT NORMAL (NORMAL)
--- NOTE | 2024-06-01 17:18 | DR.SOBA ---
HPI Time Seen Time Seen by Provider: 06/01/24 17:18 Primary Care Physician Primary Care Physician: DR. KATZ Complaints Chief Complaint:: PT STATES THAT HE HAS BEEN COUGHING, SOB, VOMITING THAT STARTED YEST. AFTER LUNCH. COVID-19 Coronavirus risk:travel/contact w/high risk person: No Has patient experienced Coronavirus symptoms: Yes Coronavirus symptoms experienced: Coughing and Shortness of Breath Reviewed Nurses Notes Reviewed: Yes Source History Provided: Patient and Family Member Mode of Arrival Mode of Arrival: Wheelchair Timing Onset of Chief Complaint: 05/31/24 PMH PMH Past Medical History: Yes Past Medical History: Diabetes and Hypertension Past Medical History Comment: A-FIB Past Surgical History: Yes Past Surgical History Comment: LEFT ELBOW, PROSTATE CA, HERNIA REPAIR, WATCHMAN Family History History of Family Medical Conditions: Yes Family Medical History: Diabetes Mellitus and Hypertension Social History Does patient currently use any type of tobacco product: No Have you used tobacco products in the last 12 months: No Type of Tobacco Use: None Does any household member use tobacco: No Alcohol Use: None Do you use any recreational Drugs:: No Lives With: Family Lives Where: Home Travel Risk Coronavirus risk:travel/contact w/high risk person: No Has patient experienced Coronavirus symptoms: Yes Coronavirus symptoms experienced: Coughing and Shortness of Breath Infectious screening Have you traveled outside the country in the last 6 months?: No Isolation: Standard PE Vital Signs Vitals: Vital Signs Temperature 97.8 F Pulse Rate 87 Pulse Rate 87 Pulse Rate 87 Pulse Rate 92 Pulse Rate 87 Pulse Rate 88 Pulse Rate 85 Pulse Rate 88 Pulse Rate 86 Pulse Rate 86 Pulse Rate 86 Pulse Rate 84 Pulse Rate 84 Pulse Rate 83 Pulse Rate 83 Pulse Rate 82 Pulse Rate 83 Pulse Rate 89 Pulse Rate 89 Pulse Rate 90 Respiratory Rate 24 Respiratory Rate 22 Respiratory Rate 23 Respiratory Rate 25 Respiratory Rate 23 Respiratory Rate 25 Respiratory Rate 24 Respiratory Rate 23 Respiratory Rate 22 Respiratory Rate 22 Respiratory Rate 22 Respiratory Rate 22 Respiratory Rate 21 Respiratory Rate 21 Respiratory Rate 23 Respiratory Rate 23 Respiratory Rate 27 Respiratory Rate 22 Respiratory Rate 27 Respiratory Rate 43 Blood Pressure 155/79 Blood Pressure 147/66 Blood Pressure 147/66 Blood Pressure 163/80 Blood Pressure 163/80 Blood Pressure 163/80 Blood Pressure 163/80 Blood Pressure 175/78 Blood Pressure 163/78 Blood Pressure 163/83 Blood Pressure 164/80 Blood Pressure 157/73 Blood Pressure 175/82 Blood Pressure 175/82 O2 Sat by Pulse Oximetry 93 O2 Sat by Pulse Oximetry 93 O2 Sat by Pulse Oximetry 95 O2 Sat by Pulse Oximetry 93 O2 Sat by Pulse Oximetry 95 O2 Sat by Pulse Oximetry 95 O2 Sat by Pulse Oximetry 94 O2 Sat by Pulse Oximetry 94 O2 Sat by Pulse Oximetry 94 O2 Sat by Pulse Oximetry 95 O2 Sat by Pulse Oximetry 94 O2 Sat by Pulse Oximetry 93 O2 Sat by Pulse Oximetry 94 O2 Sat by Pulse Oximetry 94 O2 Sat by Pulse Oximetry 91 O2 Sat by Pulse Oximetry 95 O2 Sat by Pulse Oximetry 96 O2 Sat by Pulse Oximetry 96 O2 Sat by Pulse Oximetry 96 ROR Labs Reviewed 06/01/24 14:55 06/01/24 14:55 Laboratory: WBC 8.7 X10^3/uL (3.6-10.0) 06/01/24 14:55 RBC 4.02 X10^6/uL (4.7-6.0) L 06/01/24 14:55 Hgb 12.7 g/dL (13.5-18.0) L 06/01/24 14:55 Hct 38.2 % (42.0-54.0) L 06/01/24 14:55 MCV 95.0 fL (80.0-100.0) 06/01/24 14:55 MCH 31.5 pg (27.0-34.0) 06/01/24 14:55 MCHC 33.1 g/dL (33.0-35.0) 06/01/24 14:55 RDW 15.1 % (11.6-16.5) 06/01/24 14:55 Plt Count 116 X10^3/uL (150.0-450.0) L 06/01/24 14:55 Plt Count Comment Decreased (ADEQUATE) 06/01/24 14:55 MPV 9.5 fL (7.4-11.0) 06/01/24 14:55 Neut % (Auto) 92.1 % (42.0-75.0) H 06/01/24 14:55 Lymph % (Auto) 2.7 % (21.0-51.0) L 06/01/24 14:55 Mccreary % (Auto) 4.1 % (0.0-13.0) 06/01/24 14:55 Eos % (Auto) 0.2 % (0.9-2.9) L 06/01/24 14:55 Baso % (Auto) 0.9 % (0.2-1.0) 06/01/24 14:55 Neut # (Auto) 8.0 x10^3/uL (2.2-4.8) H 06/01/24 14:55 Lymph # (Auto) 0.2 X10^3/uL (1.3-2.9) L 06/01/24 14:55 Mccreary # (Auto) 0.4 x10^3/uL (0.3-0.8) 06/01/24 14:55 Eos # (Auto) 0.0 x10^3/uL (0.0-0.2) 06/01/24 14:55 Baso # (Auto) 0.1 X10^3/uL (0.0-0.1) 06/01/24 14:55 Absolute Nucleated RBC 0.1 /100WBC 06/01/24 14:55 Total Counted 100 06/01/24 14:55 Neutrophils % (Manual) 97 % (39-76) H 06/01/24 14:55 Lymphocytes % (Manual) 2 % (13-43) L 06/01/24 14:55 Monocytes % (Manual) 1 % (4-9) L 06/01/24 14:55 Plt Morphology Comment Normal (NORMAL) 06/01/24 14:55 RBC Morphology Normal (NORMAL) 06/01/24 14:55 Sodium 139 mmol/L (136-145) 06/01/24 14:55 Corrected Sodium 141 mmol/L (136-145) 06/01/24 14:55 Potassium 4.0 mmol/L (3.5-5.1) 06/01/24 14:55 Chloride 102 mmol/L (98-107) 06/01/24 14:55 Carbon Dioxide 29.9 mmol/L (21-32) 06/01/24 14:55 BUN 18 mg/dL (7-18) 06/01/24 14:55 Creatinine 1.30 mg/dL (0.70-1.30) 06/01/24 14:55 Creatinine Cancelled 06/01/24 14:55 Est GFR (MDRD) Af Amer > 60 (>60) 06/01/24 14:55 Est GFR (MDRD) Non-Af 56 (>60) L 06/01/24 14:55 Glucose 200 mg/dL (65-99) H 06/01/24 14:55 Calcium 9.5 mg/dL (8.5-10.1) 06/01/24 14:55 Corrected Calcium TNP 06/01/24 14:55 Total Bilirubin 1.20 mg/dL (0.2-1.0) H 06/01/24 14:55 AST 17 Units/L (15-37) 06/01/24 14:55 ALT 22 Units/L (12-78) 06/01/24 14:55 Alkaline Phosphatase 95 Units/L (46-116) 06/01/24 14:55 Creatine Kinase 43 Units/L (39-308) 06/01/24 14:55 Troponin I High Sens 25.2 ng/L (4.0-60.0) 06/01/24 14:55 B-Natriuretic Peptide 3530 pg/mL (0-79) H 06/01/24 14:55 Total Protein 6.8 g/dL (6.4-8.2) 06/01/24 14:55 Albumin 3.6 g/dL (3.4-5.0) 06/01/24 14:55 Globulin 3.2 g/dL (2.5-4.5) 06/01/24 14:55 Albumin/Globulin Ratio 1.1 Ratio (1.1-2.1) 06/01/24 14:55 SARS-CoV-2 (PCR) Positive (NEGATIVE) A 06/01/24 15:02 Influenza Type A (PCR) Negative (NEGATIVE) 06/01/24 15:02 Influenza Type B (PCR) Negative (NEGATIVE) 06/01/24 15:02 RSV (PCR) Negative (NEGATIVE) 06/01/24 15:02 S. pyogenes (TEM-PCR) Not detected (NOT DETECT) 06/01/24 15:02 Opioid Opioid Risk Tool Age (Scott box if 16-45): No History of Preadolescent Sexual Abuse: No Total: 0 Total Score Risk Category: Low Risk Copyright: Seng MARIE predicting aberrant behaviors Discharge Plan Discharge Plan Patient Disposition: 01 HOME, SELF-CARE Condition: Stable Health Concerns: Post Hospitalization: new medications and changes needed to prevent readmission or further decline. Pt educated and given instructions on all concerns. Plan of Treatment: Continue with present treatment and follow up plan. Pt is to keep follow up appointment as instructed and take medications as ordered. Orders to Discharge Patient Discharge Orders: Transfer (Routine); Ordered 06/01/24 Ordered By: JENS QUESADA Follow ups/Referrals Follow ups/Referrals: Chad Katz [Primary Care Provider] - 3 days Instructions Stand Alone Forms: Post Hospital Follow Up Care
[2024-06-01] MEDS: ZOSYN VIAL 3.375 GRAMS 3.375 G in NS 100 ML IV 100 ML IV ONE (18:12)
--- NOTE | 2024-06-01 18:44 | EKG ---
Test Reason : HTN Blood Pressure : */* mmHG Vent. Rate : 88 BPM Atrial Rate : 88 BPM P-R Int : 154 ms QRS Dur : 128 ms QT Int : 364 ms P-R-T Axes : 87 -45 102 degrees QTc Int : 440 ms Normal sinus rhythm Left axis deviation Left ventricular hypertrophy with QRS widening ( R in aVL , [place] product ) Abnormal QRS-T angle, consider primary T wave abnormality Abnormal ECG No previous ECGs available Confirmed by Efraín Alejandro ([id number]) on 06/03/2024 8:08:32 AM Referred By: Confirmed By: Efraín Alejandro
--- NOTE | 2024-06-01 18:57 | RAD ---
EXAM: CHEST, 1 VIEW HISTORY: SOB / COUGH ; COMPARISON: March 23, 2022 TECHNIQUE: Chest radiographic imaging, AP portable projection, 1 image FINDINGS: Mild cardiomegaly. Hazy airspace opacities and increased interstitial markings in the hilar regions. No focal airspace disease. No pleural effusion. No pneumothorax. No acute osseous abnormality. IMPRESSION: Findings could represent acute cardiogenic edema or the sequela of an infectious process. THIS IS AN ELECTRONICALLY VERIFIED FINAL REPORT 06/01/2024 6:53 PM - Electronically signed by Jaylon Harrell MD
[2024-06-01] MEDS ORDERED: NS 250 ML IV 25 ML IV PRN (21:12)
[2024-06-01] MEDS ORDERED: ZOFRAN INJ 4 MG VIAL IVP PRN (21:32)
[2024-06-01] MEDS: ROBITUSSIN DM PO SCH (21:34)
[2024-06-01] MEDS: NS 1/2 1,000 ML IV 1,000 ML IV SCH (21:34)
[2024-06-01 22:13] VITALS: BMI 28.3
[2024-06-02] MEDS: RESTORIL CAP 15 MG PO PRN (00:44)
[2024-06-02] MEDS: ZOSYN VIAL 3.375 GRAMS 3.375 G in NS 100 ML IV 100 ML IV SCH (03:47)
[2024-06-02 05:31] LABS: BASOPHILS # (AUTO) 0.1 X10^3/uL (0.0-0.1); BASOPHILS % (AUTO) 0.8 % (0.2-1.0); HEMATOCRIT 35.5 % (42.0-54.0); HEMOGLOBIN 11.9 g/dL (13.5-18.0); LYMPHOCYTES # (AUTO) 0.4 X10^3/uL (1.3-2.9); LYMPHOCYTES % (AUTO) 6.3 % (21.0-51.0); MEAN CORPUSCULAR HEMOGLOBIN 31.5 pg (27.0-34.0); MEAN CORPUSCULAR HGB CONC 33.4 g/dL (33.0-35.0); MEAN CORPUSCULAR VOLUME 94.4 fL (80.0-100.0); MEAN PLATELET VOLUME 9.9 fL (7.4-11.0); MONOCYTES # (AUTO) 0.5 x10^3/uL (0.3-0.8); MONOCYTES % (AUTO) 7.7 % (0.0-13.0); NEUTROPHILS # (AUTO) 5.9 x10^3/uL (2.2-4.8); NEUTROPHILS % (AUTO) 85.2 % (42.0-75.0); PLATELET COUNT 98 X10^3/uL (150.0-450.0); RED BLOOD COUNT 3.77 X10^6/uL (4.7-6.0); RED CELL DISTRIBUTION WIDTH 15.2 % (11.6-16.5); WHITE BLOOD COUNT 6.9 X10^3/uL (3.6-10.0)
[2024-06-02 05:39] LABS: ALANINE AMINOTRANSFERASE 35 Units/L (12-78); ALBUMIN 3.4 g/dL (3.4-5.0); ALKALINE PHOSPHATASE 90 Units/L (46-116); ASPARTATE AMINO TRANSFERASE 39 Units/L (15-37); BLOOD UREA NITROGEN 23 mg/dL (7-18); CALCIUM 9.5 mg/dL (8.5-10.1); CARBON DIOXIDE 31.3 mmol/L (21-32); CHLORIDE 102 mmol/L (98-107); COR NA(FOR HYPERGLY) 140 mmol/L (136-145); CREATININE 1.37 mg/dL (0.70-1.30); GLUCOSE 143 mg/dL (65-99); POTASSIUM 4.6 mmol/L (3.5-5.1); SODIUM 139 mmol/L (136-145); TOTAL PROTEIN 6.4 g/dL (6.4-8.2); eGFR NON BLACK RACES 52 (>60)
--- NOTE | 2024-06-02 05:56 | RAD ---
EXAM:AP chestHISTORY:COVID pneumoniaCOMPARISON:06/01/2024FINDINGS: .br aeration of the lungs with decreasing infiltrates. Increased interstitial process remains in both lungs, especially in the bases without evidence for airspace component or pleural fluid.IMPRESSION:Slight improvement in pulmonary infiltrates or edema, with incomplete resolution, since 1 day prior.THIS IS AN ELECTRONICALLY VERIFIED FINAL REPORT06/02/2024 5:53 AM - Electronically signed by Kedar Guardado MD
[2024-06-02] MEDS: XOPENEX 1.25 MG/3 ML NEBULE NEB SCH (06:07)
[2024-06-02] MEDS: ENTRESTO 49/51 MG TABLET PO SCH (08:44)
[2024-06-02] MEDS: ASPIRIN EC 81 MG PO SCH (08:44)
[2024-06-02] MEDS: PROTONIX TAB 40 MG PO SCH (08:44)
[2024-06-02] MEDS: VSL#3 PROBIOTIC CAP 112.5 B PO SCH (08:44)
[2024-06-02] MEDS: TOPROL XL PO SCH (08:44)
[2024-06-02] MEDS: LIPITOR TAB 10 MG PO SCH (08:44)
[2024-06-02] MEDS: APRESOLINE TAB 25 MG PO SCH (08:44)
--- NOTE | 2024-06-02 08:46 | DR.H&P ---
H&P History & Physical for Day of: H&P Date: 06/01/24 Chief Complaint Chief Complaint: SOB, WEAKNESS History of Present Illness History of Present Illness: PT IS 84 WM, ER ADMISSION WITH COVID PNEUMONIA. PT REPORTS SUDDEN ONSET OF SICKNESS ON MONDAY WITH SORE THROAT, FOLLOWED BY CHEST CONGESTION AND VOMITING. PT WAS +COVID IN ER. PT HAS PMH OF CAD, CHF, HTN AND OA. PT ADMITTED FOR TREATMENT OF ACUTE ILLNESS. Past Medical History Past Medical History: Diabetes and Hypertension Past Surgical History Surgical History: Angioplasty/Stents and CABG/Valve Surgery Family History Family Medical History: Diabetes Mellitus and Hypertension Social History Does patient currently use any type of tobacco product: No Have you used tobacco products in the last 12 months: No Type of Tobacco Use: None Does any household member use tobacco: No Alcohol Use: None Drug Use: None Medications Home Medications: Home Medications Medication Instructions Recorded Confirmed Type aspirin 81 mg tablet,delayed 81 mg PO QDAY 06/01/24 06/01/24 History release atorvastatin 10 mg tablet 10 mg PO QDAY 06/01/24 06/01/24 History cholecalciferol (vitamin D3) 50 50 mcg PO QDAY 06/01/24 06/01/24 History mcg (2,000 unit) tablet (Vitamin D3) furosemide 40 mg tablet (Lasix) 40 mg PO BID 06/01/24 06/01/24 History hydralazine 50 mg tablet 50 mg PO BID 06/01/24 06/01/24 History meloxicam 7.5 mg tablet 7.5 mg PO QDAY 06/01/24 06/01/24 History metformin 500 mg tablet 500 mg PO BID 06/01/24 06/01/24 History metoprolol succinate 50 mg capsule 50 mg PO BID 06/01/24 06/01/24 History sprinkle, ext. release 24 hr eyzupvun-oe-nmaby 300 mcg-K 60 1 tab PO QDAY 06/01/24 06/01/24 History mcg-lycop 600 mcg-lutein 300 mcg tablet (Centrum Silver Men) pantoprazole 40 mg tablet,delayed 40 mg PO QDAY 06/01/24 06/01/24 History release sacubitril 97 mg-valsartan 103 mg 1 tab PO BID 06/01/24 06/01/24 History tablet (Entresto) tamsulosin 0.4 mg capsule 0.4 mg PO QHS 06/01/24 06/01/24 History Allergies Allergies Allergy/AdvReac Type Severity Reaction Status Date / Time No Known Allergies Allergy Verified 06/01/24 14:25 Labs 06/02/24 04:36 06/02/24 04:36 Labs: Laboratory WBC 6.9 X10^3/uL (3.6-10.0) 06/02/24 04:36 RBC 3.77 X10^6/uL (4.7-6.0) L 06/02/24 04:36 Hgb 11.9 g/dL (13.5-18.0) L 06/02/24 04:36 Hct 35.5 % (42.0-54.0) L 06/02/24 04:36 MCV 94.4 fL (80.0-100.0) 06/02/24 04:36 MCH 31.5 pg (27.0-34.0) 06/02/24 04:36 MCHC 33.4 g/dL (33.0-35.0) 06/02/24 04:36 RDW 15.2 % (11.6-16.5) 06/02/24 04:36 Plt Count 98 X10^3/uL (150.0-450.0) L 06/02/24 04:36 Plt Count Comment Decreased (ADEQUATE) 06/01/24 14:55 MPV 9.9 fL (7.4-11.0) 06/02/24 04:36 Neut % (Auto) 85.2 % (42.0-75.0) H 06/02/24 04:36 Lymph % (Auto) 6.3 % (21.0-51.0) L 06/02/24 04:36 Bates % (Auto) 7.7 % (0.0-13.0) 06/02/24 04:36 Eos % (Auto) 0.0 % (0.9-2.9) L 06/02/24 04:36 Baso % (Auto) 0.8 % (0.2-1.0) 06/02/24 04:36 Neut # (Auto) 5.9 x10^3/uL (2.2-4.8) H 06/02/24 04:36 Lymph # (Auto) 0.4 X10^3/uL (1.3-2.9) L 06/02/24 04:36 Bates # (Auto) 0.5 x10^3/uL (0.3-0.8) 06/02/24 04:36 Eos # (Auto) 0.0 x10^3/uL (0.0-0.2) 06/02/24 04:36 Baso # (Auto) 0.1 X10^3/uL (0.0-0.1) 06/02/24 04:36 Absolute Nucleated RBC 0.4 /100WBC 06/02/24 04:36 Total Counted 100 06/01/24 14:55 Neutrophils % (Manual) 97 % (39-76) H 06/01/24 14:55 Lymphocytes % (Manual) 2 % (13-43) L 06/01/24 14:55 Monocytes % (Manual) 1 % (4-9) L 06/01/24 14:55 Plt Morphology Comment Normal (NORMAL) 06/01/24 14:55 RBC Morphology Normal (NORMAL) 06/01/24 14:55 Sodium 139 mmol/L (136-145) 06/02/24 04:36 Corrected Sodium 140 mmol/L (136-145) 06/02/24 04:36 Potassium 4.6 mmol/L (3.5-5.1) 06/02/24 04:36 Chloride 102 mmol/L (98-107) 06/02/24 04:36 Carbon Dioxide 31.3 mmol/L (21-32) 06/02/24 04:36 BUN 23 mg/dL (7-18) H 06/02/24 04:36 Creatinine 1.37 mg/dL (0.70-1.30) H 06/02/24 04:36 Est GFR (MDRD) Af Amer > 60 (>60) 06/02/24 04:36 Est GFR (MDRD) Non-Af 52 (>60) L 06/02/24 04:36 Glucose 143 mg/dL (65-99) H 06/02/24 04:36 Calcium 9.5 mg/dL (8.5-10.1) 06/02/24 04:36 Corrected Calcium TNP 06/02/24 04:36 Total Bilirubin 1.00 mg/dL (0.2-1.0) 06/02/24 04:36 AST 39 Units/L (15-37) H 06/02/24 04:36 ALT 35 Units/L (12-78) 06/02/24 04:36 Alkaline Phosphatase 90 Units/L (46-116) 06/02/24 04:36 Creatine Kinase 45 Units/L (39-308) 06/02/24 04:36 Troponin I High Sens 152.5 ng/L (4.0-60.0) H* 06/02/24 04:36 B-Natriuretic Peptide 4890 pg/mL (0-79) H 06/02/24 04:36 Total Protein 6.4 g/dL (6.4-8.2) 06/02/24 04:36 Albumin 3.4 g/dL (3.4-5.0) 06/02/24 04:36 Globulin 3.0 g/dL (2.5-4.5) 06/02/24 04:36 Albumin/Globulin Ratio 1.1 Ratio (1.1-2.1) 06/02/24 04:36 SARS-CoV-2 (PCR) Positive (NEGATIVE) A 06/01/24 15:02 Influenza Type A (PCR) Negative (NEGATIVE) 06/01/24 15:02 Influenza Type B (PCR) Negative (NEGATIVE) 06/01/24 15:02 RSV (PCR) Negative (NEGATIVE) 06/01/24 15:02 S. pyogenes (TEM-PCR) Not detected (NOT DETECT) 06/01/24 15:02 Review of Systems Constitutional: Chills, Sweats, Weakness and Malaise Eyes: No Symptoms Reported ENT: Nose Congestion and Throat Pain Respiratory: Cough, Shortness of Breath and SOB with Excertion Cardiovascular: No Symptoms Reported Gastrointestinal: Vomiting Genitourinary: No Symptoms Reported Musculoskeletal: No Symptoms Reported Skin: No Symptoms Reported Neurological: No Symptoms Reported Physical Exam Vital Signs: Vital Signs Temperature 98.2 F Temperature 98.3 F Temperature 98.3 F Pulse Rate [Left Brachial] 86 Pulse Rate [Left Brachial] 89 Pulse Rate [Left Brachial] 85 Pulse Rate 80 Respiratory Rate 26 Respiratory Rate 21 Respiratory Rate 16 Blood Pressure [Left Arm] 171/91 Blood Pressure [Left Arm] 162/93 Blood Pressure [Left Arm] 165/81 O2 Sat by Pulse Oximetry 95 O2 Sat by Pulse Oximetry 94 O2 Sat by Pulse Oximetry 93 O2 Sat by Pulse Oximetry 92 Oriented: Normal Eyes: Normal Ear: Normal Nose: Discharge Throat: Red Respiratory: Rhonchi Throughout, RLL Diminished and LLL Diminished Cardiovascular: Normal; negative Edema Auscultation: Bowel Sounds: Normal Tenderness: Normal Skin: Decreased Turgur Musculoskeletal: Normal Psychiatric: Normal Affect: Normal Speech Pattern: Clear and Appropriate Assessment/Plan (1) Pneumonia due to COVID-19 virus: Narrative Support Text: ADMIT, IV ATBX THERAPY BP AND CARDIAC MONITORING RESP THERAPY, SUPPLEMENTAL O2 DUO NEBS, VERIFY HOME MEDICATIONS STRICT I&OS, ABG ON ADMISSION REPEAT AM CXR Status: Acute (2) CHF (congestive heart failure): Status: Acute (3) CAD (coronary artery disease): Status: Acute
[2024-06-02] MEDS: NS 1/2 1,000 ML IV 1,000 ML IV ONE (08:48)
[2024-06-02] MEDS: ZOFRAN INJ 4 MG VIAL ONE (08:49)
[2024-06-02] MEDS: FLOMAX PO SCH (20:31)
[2024-06-02] MEDS ORDERED: NS 1/2 1,000 ML IV 1,000 ML IV ONE (22:40)
[2024-06-03 05:19] LABS: BASOPHILS % (AUTO) 1.2 % (0.2-1.0); EOSINOPHILS % (AUTO) 0.4 % (0.9-2.9); HEMATOCRIT 33.9 % (42.0-54.0); HEMOGLOBIN 11.4 g/dL (13.5-18.0); LYMPHOCYTES # (AUTO) 0.7 X10^3/uL (1.3-2.9); LYMPHOCYTES % (AUTO) 16.6 % (21.0-51.0); MEAN CORPUSCULAR HEMOGLOBIN 31.6 pg (27.0-34.0); MEAN CORPUSCULAR HGB CONC 33.5 g/dL (33.0-35.0); MEAN CORPUSCULAR VOLUME 94.3 fL (80.0-100.0); MEAN PLATELET VOLUME 9.9 fL (7.4-11.0); MONOCYTES # (AUTO) 0.5 x10^3/uL (0.3-0.8); MONOCYTES % (AUTO) 11.2 % (0.0-13.0); NEUTROPHILS # (AUTO) 2.9 x10^3/uL (2.2-4.8); NEUTROPHILS % (AUTO) 70.6 % (42.0-75.0); PLATELET COUNT 86 X10^3/uL (150.0-450.0); WHITE BLOOD COUNT 4.1 X10^3/uL (3.6-10.0)
[2024-06-03 05:30] LABS: ALANINE AMINOTRANSFERASE 62 Units/L (12-78); ALKALINE PHOSPHATASE 78 Units/L (46-116); ASPARTATE AMINO TRANSFERASE 59 Units/L (15-37); BLOOD UREA NITROGEN 22 mg/dL (7-18); CALCIUM 8.8 mg/dL (8.5-10.1); CARBON DIOXIDE 30.8 mmol/L (21-32); CHLORIDE 102 mmol/L (98-107); COR CA(FOR HYPOALB) 9.6 mg/dL (8.5-10.1); GLUCOSE 104 mg/dL (65-99); POTASSIUM 4.2 mmol/L (3.5-5.1); SODIUM 138 mmol/L (136-145); eGFR NON BLACK RACES 56 (>60)
--- NOTE | 2024-06-03 15:10 | RAD ---
EXAMINATION:CHEST, 1 VIEWHISTORY:pneumonia; .COMPARISON STUDY:Chest x-ray 06/02/2024TECHNIQUE:Single AP view of the chestFINDINGS:Patchy interstitial alveolar infiltrates scattered in both lungs. Mild cardiac silhouette enlargement. Slight pulmonary vascular congestion. Bones appear intact.IMPRESSION:Patchy infiltrates scattered in both lungs. Mild cardiac silhouette enlargement with slight pulmonary vascular congestion.THIS IS AN ELECTRONICALLY VERIFIED FINAL REPORT06/03/2024 2:56 PM - Electronically signed by Coco Lujan MD
[2024-06-04 05:00] LABS: BASOPHILS % (AUTO) 1.2 % (0.2-1.0); EOSINOPHILS # (AUTO) 0.1 x10^3/uL (0.0-0.2); EOSINOPHILS % (AUTO) 2.6 % (0.9-2.9); HEMATOCRIT 33.3 % (42.0-54.0); HEMOGLOBIN 11.3 g/dL (13.5-18.0); LYMPHOCYTES # (AUTO) 0.7 X10^3/uL (1.3-2.9); LYMPHOCYTES % (AUTO) 18.3 % (21.0-51.0); MEAN CORPUSCULAR HEMOGLOBIN 31.4 pg (27.0-34.0); MEAN CORPUSCULAR HGB CONC 33.8 g/dL (33.0-35.0); MEAN CORPUSCULAR VOLUME 92.9 fL (80.0-100.0); MEAN PLATELET VOLUME 9.5 fL (7.4-11.0); MONOCYTES # (AUTO) 0.5 x10^3/uL (0.3-0.8); MONOCYTES % (AUTO) 11.5 % (0.0-13.0); NEUTROPHILS # (AUTO) 2.6 x10^3/uL (2.2-4.8); NEUTROPHILS % (AUTO) 66.4 % (42.0-75.0); PLATELET COUNT 93 X10^3/uL (150.0-450.0); RED BLOOD COUNT 3.59 X10^6/uL (4.7-6.0); RED CELL DISTRIBUTION WIDTH 14.8 % (11.6-16.5); WHITE BLOOD COUNT 3.9 X10^3/uL (3.6-10.0)
[2024-06-04 05:16] LABS: ALANINE AMINOTRANSFERASE 46 Units/L (12-78); ALBUMIN 2.7 g/dL (3.4-5.0); ALKALINE PHOSPHATASE 73 Units/L (46-116); ASPARTATE AMINO TRANSFERASE 31 Units/L (15-37); BLOOD UREA NITROGEN 21 mg/dL (7-18); CALCIUM 8.9 mg/dL (8.5-10.1); CARBON DIOXIDE 27.4 mmol/L (21-32); CHLORIDE 103 mmol/L (98-107); COR CA(FOR HYPOALB) 9.9 mg/dL (8.5-10.1); CREATININE 1.17 mg/dL (0.70-1.30); GLUCOSE 105 mg/dL (65-99); POTASSIUM 3.8 mmol/L (3.5-5.1); SODIUM 137 mmol/L (136-145); TOTAL PROTEIN 5.7 g/dL (6.4-8.2); eGFR NON BLACK RACES > 60 (>60)
--- NOTE | 2024-06-04 07:05 | RAD ---
EXAMINATION: CHEST, 1 VIEW HISTORY: pneumonia; . COMPARISON STUDY: 06/03/2024 TECHNIQUE: One view FINDINGS: Mild cardiomegaly. Decrease in bilateral infiltrates. No pneumothorax, new infiltrate or other tucker ge noted. EKG leads overlie the chest. IMPRESSION: Decrease in bilateral infiltrates. Follow-up recommended THIS IS AN ELECTRONICALLY VERIFIED FINAL REPORT 06/04/2024 7:02 AM - Electronically signed by Everton Su MD
[2024-06-04 16:04] VITALS: TEMP 97.6
[2024-06-04 16:10] VITALS: BP 136/63; PULSE 68; RESP 25; O2SAT 98
--- NOTE | 2024-06-07 10:30 | W.DIS.FURT ---
Summary of Discharge Discharge Summary of Date Date of Exam: 06/04/24 Admission Date Date of Admission: 06/01/24 Admission Diagnosis Hospital Course: Mr. Harrell is a 84-year-old male who presented with chest congestion, sore throat and vomiting. He was found to be positive for COVID infection. He was admitted to the ICU for further evaluation. He was started on supportive care with nebs, empiric antibiotics and cough medicine. He was doing well, did not require any oxygen. His labs were monitored daily and electrolytes were replaced as needed. He was ambulating in the room and tolerating p.o. intake. He was stable to be discharged home. Will follow-up with PCP as scheduled. Vital Signs: Vital Signs (72 hours) 06/01/24 14:53 06/01/24 15:00 06/01/24 15:00 Temperature 97.8 F Pulse Rate 89 83 Pulse Rate [Left Brachial] Respiratory Rate 22 27 H Blood Pressure 175/82 157/73 Blood Pressure [Left Arm] O2 Sat by Pulse Oximetry 96 95 Oxygen Delivery Method 06/01/24 15:15 06/01/24 15:30 06/01/24 15:30 Temperature Pulse Rate 82 83 Pulse Rate [Left Brachial] Respiratory Rate 23 23 Blood Pressure 164/80 Blood Pressure [Left Arm] O2 Sat by Pulse Oximetry 91 L 94 L Oxygen Delivery Method 06/01/24 15:45 06/01/24 16:00 06/01/24 16:00 Temperature Pulse Rate 83 84 Pulse Rate [Left Brachial] Respiratory Rate 21 21 Blood Pressure 163/83 Blood Pressure [Left Arm] O2 Sat by Pulse Oximetry 94 L 93 L Oxygen Delivery Method 06/01/24 16:15 06/01/24 16:30 06/01/24 16:30 Temperature Pulse Rate 84 86 Pulse Rate [Left Brachial] Respiratory Rate 22 22 Blood Pressure 163/78 Blood Pressure [Left Arm] O2 Sat by Pulse Oximetry 94 L 95 Oxygen Delivery Method 06/01/24 16:45 06/01/24 16:57 06/01/24 17:00 Temperature Pulse Rate 86 86 Pulse Rate [Left Brachial] Respiratory Rate 22 22 Blood Pressure 175/78 Blood Pressure [Left Arm] O2 Sat by Pulse Oximetry 94 L 94 L Oxygen Delivery Method 06/01/24 17:05 06/01/24 17:20 06/01/24 17:21 Temperature Pulse Rate 88 85 Pulse Rate [Left Brachial] Respiratory Rate 23 24 Blood Pressure 163/80 Blood Pressure [Left Arm] O2 Sat by Pulse Oximetry 94 L 95 Oxygen Delivery Method 06/01/24 17:21 06/01/24 17:21 06/01/24 17:21 Temperature Pulse Rate Pulse Rate [Left Brachial] Respiratory Rate Blood Pressure 163/80 163/80 163/80 Blood Pressure [Left Arm] O2 Sat by Pulse Oximetry Oxygen Delivery Method 06/01/24 17:21 06/01/24 17:30 06/01/24 17:30 Temperature Pulse Rate 88 87 Pulse Rate [Left Brachial] Respiratory Rate 25 H 23 Blood Pressure 147/66 Blood Pressure [Left Arm] O2 Sat by Pulse Oximetry 95 93 L Oxygen Delivery Method 06/01/24 17:30 06/01/24 17:48 06/01/24 17:59 Temperature Pulse Rate 92 H 87 Pulse Rate [Left Brachial] Respiratory Rate 25 H 23 Blood Pressure 147/66 Blood Pressure [Left Arm] O2 Sat by Pulse Oximetry 95 93 L Oxygen Delivery Method 06/01/24 18:00 06/01/24 18:00 06/01/24 18:15 Temperature Pulse Rate 87 87 Pulse Rate [Left Brachial] Respiratory Rate 22 24 Blood Pressure 155/79 Blood Pressure [Left Arm] O2 Sat by Pulse Oximetry 93 L Oxygen Delivery Method 06/01/24 18:30 06/01/24 18:30 06/01/24 18:30 Temperature Pulse Rate 87 Pulse Rate [Left Brachial] Respiratory Rate 25 H Blood Pressure 157/74 157/74 Blood Pressure [Left Arm] O2 Sat by Pulse Oximetry 94 L Oxygen Delivery Method 06/01/24 18:45 06/01/24 19:00 06/01/24 19:00 Temperature Pulse Rate 87 87 Pulse Rate [Left Brachial] Respiratory Rate 21 24 Blood Pressure 162/80 Blood Pressure [Left Arm] O2 Sat by Pulse Oximetry 93 L 95 Oxygen Delivery Method 06/01/24 19:15 06/01/24 19:30 06/01/24 19:30 Temperature Pulse Rate 86 86 Pulse Rate [Left Brachial] Respiratory Rate 23 24 Blood Pressure 162/81 Blood Pressure [Left Arm] O2 Sat by Pulse Oximetry 94 L 95 Oxygen Delivery Method 06/01/24 19:30 06/01/24 19:47 06/01/24 20:00 Temperature Pulse Rate 86 Pulse Rate [Left Brachial] Respiratory Rate 23 Blood Pressure 162/81 172/85 Blood Pressure [Left Arm] O2 Sat by Pulse Oximetry 95 Oxygen Delivery Method 06/01/24 20:00 06/01/24 20:15 06/01/24 20:30 Temperature Pulse Rate 89 87 88 Pulse Rate [Left Brachial] Respiratory Rate 21 22 16 Blood Pressure Blood Pressure [Left Arm] O2 Sat by Pulse Oximetry 95 95 95 Oxygen Delivery Method 06/01/24 20:30 06/01/24 20:45 06/01/24 20:50 Temperature Pulse Rate 91 H Pulse Rate [Left Brachial] Respiratory Rate 24 Blood Pressure 178/88 Blood Pressure [Left Arm] O2 Sat by Pulse Oximetry Oxygen Delivery Method Room Air 06/01/24 20:00 06/01/24 21:37 06/01/24 21:39 Temperature 99.2 F Pulse Rate 78 Pulse Rate [Left Brachial] 91 H Respiratory Rate 26 H Blood Pressure Blood Pressure [Left Arm] 169/97 O2 Sat by Pulse Oximetry 92 L 95 Oxygen Delivery Method Room Air Room Air 06/01/24 21:40 06/01/24 21:00 06/01/24 22:00 Temperature 99.2 F Pulse Rate 78 Pulse Rate [Left Brachial] 90 90 Respiratory Rate 16 19 20 Blood Pressure 178/88 Blood Pressure [Left Arm] 177/88 O2 Sat by Pulse Oximetry 95 91 L 92 L Oxygen Delivery Method Room Air Room Air Room Air 06/01/24 22:14 06/02/24 00:00 06/02/24 02:00 Temperature 99.2 F 98.3 F 98.3 F Pulse Rate Pulse Rate [Left Brachial] 90 89 85 Respiratory Rate 20 26 H 16 Blood Pressure Blood Pressure [Left Arm] 153/83 165/81 O2 Sat by Pulse Oximetry 92 L 93 L 92 L Oxygen Delivery Method Room Air Room Air Room Air 06/02/24 04:00 06/02/24 06:00 06/02/24 06:07 Temperature 98.3 F 98.2 F Pulse Rate 80 Pulse Rate [Left Brachial] 89 86 Respiratory Rate 21 26 H Blood Pressure Blood Pressure [Left Arm] 162/93 171/91 O2 Sat by Pulse Oximetry 93 L 94 L 95 Oxygen Delivery Method Room Air Room Air 06/02/24 07:00 06/02/24 08:00 06/02/24 10:00 Temperature 97.9 F Pulse Rate Pulse Rate [Left Brachial] 80 82 Respiratory Rate 24 21 Blood Pressure Blood Pressure [Left Arm] 159/81 166/81 O2 Sat by Pulse Oximetry 94 L 94 L Oxygen Delivery Method Room Air Room Air Room Air 06/02/24 12:00 06/02/24 13:51 06/02/24 14:00 Temperature 98.2 F Pulse Rate 73 Pulse Rate [Left Brachial] 75 73 Respiratory Rate 20 22 Blood Pressure Blood Pressure [Left Arm] 151/72 172/83 O2 Sat by Pulse Oximetry 95 95 99 Oxygen Delivery Method Room Air Room Air 06/02/24 16:00 06/02/24 18:00 06/02/24 10:00 Temperature 98.6 F Pulse Rate Pulse Rate [Left Brachial] 84 73 Respiratory Rate 20 22 Blood Pressure Blood Pressure [Left Arm] 164/89 167/86 O2 Sat by Pulse Oximetry 98 96 Oxygen Delivery Method Room Air Room Air Room Air 06/02/24 19:00 06/02/24 20:00 06/02/24 20:20 Temperature 99.0 F Pulse Rate Pulse Rate [Left Brachial] 76 Respiratory Rate 18 Blood Pressure Blood Pressure [Left Arm] 155/88 O2 Sat by Pulse Oximetry 98 Oxygen Delivery Method Room Air Room Air Room Air 06/02/24 20:20 06/02/24 22:00 06/03/24 00:00 Temperature 99.0 F 99.1 F Pulse Rate 76 Pulse Rate [Left Brachial] 78 70 Respiratory Rate 20 18 Blood Pressure Blood Pressure [Left Arm] 152/70 155/76 O2 Sat by Pulse Oximetry 96 98 95 Oxygen Delivery Method Room Air Room Air 06/03/24 02:00 06/03/24 04:00 06/03/24 06:00 Temperature 99.0 F 98.9 F Pulse Rate Pulse Rate [Left Brachial] 72 70 68 Respiratory Rate 18 18 22 Blood Pressure Blood Pressure [Left Arm] 152/74 140/78 159/72 O2 Sat by Pulse Oximetry 94 L 97 95 Oxygen Delivery Method Room Air Room Air Room Air 06/03/24 07:00 06/03/24 07:00 06/03/24 08:00 Temperature 97.6 F Pulse Rate 72 75 Pulse Rate [Left Brachial] Respiratory Rate 17 22 Blood Pressure 163/77 146/69 Blood Pressure [Left Arm] O2 Sat by Pulse Oximetry 95 96 Oxygen Delivery Method Room Air 06/03/24 09:00 06/03/24 10:00 06/03/24 11:00 Temperature Pulse Rate 67 64 62 Pulse Rate [Left Brachial] Respiratory Rate 19 17 15 Blood Pressure 146/69 146/68 140/65 Blood Pressure [Left Arm] O2 Sat by Pulse Oximetry 97 95 96 Oxygen Delivery Method 06/03/24 13:28 06/03/24 12:00 06/03/24 13:00 Temperature 97.6 F Pulse Rate 66 63 68 Pulse Rate [Left Brachial] Respiratory Rate 20 22 Blood Pressure 145/70 146/70 Blood Pressure [Left Arm] O2 Sat by Pulse Oximetry 98 97 97 Oxygen Delivery Method 06/03/24 14:00 06/03/24 14:00 06/03/24 15:00 Temperature Pulse Rate 78 Pulse Rate [Left Brachial] Respiratory Rate 20 Blood Pressure 164/73 171/72 Blood Pressure [Left Arm] O2 Sat by Pulse Oximetry 98 Oxygen Delivery Method 06/03/24 15:00 06/03/24 16:00 06/03/24 16:00 Temperature 98.1 F Pulse Rate 69 67 Pulse Rate [Left Brachial] Respiratory Rate 19 17 Blood Pressure 163/84 Blood Pressure [Left Arm] O2 Sat by Pulse Oximetry 93 L 94 L Oxygen Delivery Method 06/03/24 17:00 06/03/24 17:00 06/03/24 18:00 Temperature Pulse Rate 69 69 Pulse Rate [Left Brachial] Respiratory Rate 22 19 Blood Pressure 166/76 Blood Pressure [Left Arm] O2 Sat by Pulse Oximetry 95 97 Oxygen Delivery Method 06/03/24 18:00 06/03/24 19:00 06/03/24 19:00 Temperature Pulse Rate 67 Pulse Rate [Left Brachial] Respiratory Rate 21 Blood Pressure 147/70 Blood Pressure [Left Arm] O2 Sat by Pulse Oximetry 97 Oxygen Delivery Method Room Air 06/03/24 19:01 06/03/24 20:00 06/03/24 20:00 Temperature 99.0 F Pulse Rate 70 Pulse Rate [Left Brachial] Respiratory Rate 18 Blood Pressure 176/67 161/77 Blood Pressure [Left Arm] O2 Sat by Pulse Oximetry 98 Oxygen Delivery Method 06/03/24 21:00 06/03/24 21:00 06/03/24 22:00 Temperature Pulse Rate 67 73 Pulse Rate [Left Brachial] Respiratory Rate 19 20 Blood Pressure 143/67 Blood Pressure [Left Arm] O2 Sat by Pulse Oximetry 97 98 Oxygen Delivery Method 06/03/24 22:00 06/03/24 23:00 06/03/24 23:00 Temperature Pulse Rate 73 Pulse Rate [Left Brachial] Respiratory Rate 17 Blood Pressure 162/76 167/70 Blood Pressure [Left Arm] O2 Sat by Pulse Oximetry 95 Oxygen Delivery Method 06/04/24 00:00 06/04/24 00:00 06/04/24 01:00 Temperature 98.8 F 98.8 F Pulse Rate 72 72 Pulse Rate [Left Brachial] Respiratory Rate 15 17 Blood Pressure 146/65 146/65 Blood Pressure [Left Arm] O2 Sat by Pulse Oximetry 96 96 Oxygen Delivery Method 06/04/24 02:00 06/04/24 02:00 06/04/24 03:00 Temperature Pulse Rate 72 68 Pulse Rate [Left Brachial] Respiratory Rate 18 17 Blood Pressure 135/65 148/63 Blood Pressure [Left Arm] O2 Sat by Pulse Oximetry 96 99 Oxygen Delivery Method 06/04/24 04:00 06/03/24 21:43 06/03/24 21:43 Temperature Pulse Rate 79 81 Pulse Rate [Left Brachial] Respiratory Rate 23 Blood Pressure 157/80 Blood Pressure [Left Arm] O2 Sat by Pulse Oximetry 97 97 Oxygen Delivery Method Room Air 06/04/24 05:00 06/04/24 06:00 06/04/24 07:00 Temperature 98.4 F Pulse Rate 72 72 80 Pulse Rate [Left Brachial] Respiratory Rate 13 24 21 Blood Pressure 141/67 148/73 148/66 Blood Pressure [Left Arm] O2 Sat by Pulse Oximetry 99 95 96 Oxygen Delivery Method 06/04/24 09:10 06/04/24 07:00 06/04/24 08:00 Temperature 97.8 F Pulse Rate 77 Pulse Rate [Left Brachial] Respiratory Rate 24 Blood Pressure 120/58 Blood Pressure [Left Arm] O2 Sat by Pulse Oximetry 96 Oxygen Delivery Method Room Air Room Air 06/04/24 09:00 06/04/24 10:00 Temperature Pulse Rate 71 65 Pulse Rate [Left Brachial] Respiratory Rate 21 18 Blood Pressure 110/54 125/62 Blood Pressure [Left Arm] O2 Sat by Pulse Oximetry 97 99 Oxygen Delivery Method Labs: Laboratory Last Values WBC 3.9 X10^3/uL (3.6-10.0) 06/04/24 04:28 RBC 3.59 X10^6/uL (4.7-6.0) L 06/04/24 04:28 Hgb 11.3 g/dL (13.5-18.0) L 06/04/24 04:28 Hct 33.3 % (42.0-54.0) L 06/04/24 04:28 MCV 92.9 fL (80.0-100.0) 06/04/24 04:28 MCH 31.4 pg (27.0-34.0) 06/04/24 04:28 MCHC 33.8 g/dL (33.0-35.0) 06/04/24 04:28 RDW 14.8 % (11.6-16.5) 06/04/24 04:28 Plt Count 93 X10^3/uL (150.0-450.0) L 06/04/24 04:28 Plt Count Comment Decreased (ADEQUATE) 06/01/24 14:55 MPV 9.5 fL (7.4-11.0) 06/04/24 04:28 Neut % (Auto) 66.4 % (42.0-75.0) 06/04/24 04:28 Lymph % (Auto) 18.3 % (21.0-51.0) L 06/04/24 04:28 [place] % (Auto) 11.5 % (0.0-13.0) 06/04/24 04:28 Eos % (Auto) 2.6 % (0.9-2.9) 06/04/24 04:28 Baso % (Auto) 1.2 % (0.2-1.0) H 06/04/24 04:28 Neut # (Auto) 2.6 x10^3/uL (2.2-4.8) 06/04/24 04:28 Lymph # (Auto) 0.7 X10^3/uL (1.3-2.9) L 06/04/24 04:28 [place] # (Auto) 0.5 x10^3/uL (0.3-0.8) 06/04/24 04:28 Eos # (Auto) 0.1 x10^3/uL (0.0-0.2) 06/04/24 04:28 Baso # (Auto) 0.0 X10^3/uL (0.0-0.1) 06/04/24 04:28 Absolute Nucleated RBC 0.1 /100WBC 06/04/24 04:28 Total Counted 100 06/01/24 14:55 Neutrophils % (Manual) 97 % (39-76) H 06/01/24 14:55 Lymphocytes % (Manual) 2 % (13-43) L 06/01/24 14:55 Monocytes % (Manual) 1 % (4-9) L 06/01/24 14:55 Plt Morphology Comment Normal (NORMAL) 06/01/24 14:55 RBC Morphology Normal (NORMAL) 06/01/24 14:55 Sodium 137 mmol/L (136-145) 06/04/24 04:28 Corrected Sodium TNP 06/04/24 04:28 Potassium 3.8 mmol/L (3.5-5.1) 06/04/24 04:28 Chloride 103 mmol/L (98-107) 06/04/24 04:28 Carbon Dioxide 27.4 mmol/L (21-32) 06/04/24 04:28 BUN 21 mg/dL (7-18) H 06/04/24 04:28 Creatinine 1.17 mg/dL (0.70-1.30) 06/04/24 04:28 Est GFR (MDRD) Af Amer > 60 (>60) 06/04/24 04:28 Est GFR (MDRD) Non-Af > 60 (>60) 06/04/24 04:28 Glucose 105 mg/dL (65-99) H 06/04/24 04:28 POC Glucose (mg/dL) 119 mg/dL (65-99) H 06/04/24 11:51 Calcium 8.9 mg/dL (8.5-10.1) 06/04/24 04:28 Corrected Calcium 9.9 mg/dL (8.5-10.1) 06/04/24 04:28 Total Bilirubin 0.70 mg/dL (0.2-1.0) 06/04/24 04:28 AST 31 Units/L (15-37) 06/04/24 04:28 ALT 46 Units/L (12-78) 06/04/24 04:28 Alkaline Phosphatase 73 Units/L (46-116) 06/04/24 04:28 Creatine Kinase 45 Units/L (39-308) 06/02/24 04:36 Troponin I High Sens 152.5 ng/L (4.0-60.0) H* 06/02/24 04:36 B-Natriuretic Peptide 4890 pg/mL (0-79) H 06/02/24 04:36 Total Protein 5.7 g/dL (6.4-8.2) L 06/04/24 04:28 Albumin 2.7 g/dL (3.4-5.0) L 06/04/24 04:28 Globulin 3.0 g/dL (2.5-4.5) 06/04/24 04:28 Albumin/Globulin Ratio 0.9 Ratio (1.1-2.1) L 06/04/24 04:28 SARS-CoV-2 (PCR) Positive (NEGATIVE) A 06/01/24 15:02 Influenza Type A (PCR) Negative (NEGATIVE) 06/01/24 15:02 Influenza Type B (PCR) Negative (NEGATIVE) 06/01/24 15:02 RSV (PCR) Negative (NEGATIVE) 06/01/24 15:02 S. pyogenes (TEM-PCR) Not detected (NOT DETECT) 06/01/24 15:02 Reason For Visit: PNEUMONIA, RESPIRATORY DISTRESS Discharge Diagnosis All Active Problems (Updated 06/05/24 @ 15:40 by Shannan George) Dizziness (Acute) Arrhythmia (Acute) Hypertension (Chronic) Diabetes mellitus (Chronic) Hyperthyroidism (Chronic) Atrial fibrillation and flutter (Acute) Pneumonia due to COVID-19 virus (Acute) CHF (congestive heart failure) (Acute) CAD (coronary artery disease) (Acute) Bronchitis (Acute) Aortic stenosis (Chronic) Cardiomyopathy (Chronic) Tachycardia (Acute) Hypertension (Acute) Atrial flutter (Acute) Double vision (Acute) Chest pain (Acute) SOB (shortness of breath) (Acute) New onset atrial fibrillation (Acute) Syncope, cardiogenic (Acute) Cellulitis of right upper extremity (Acute) Back pain of lumbosacral region with sciatica (Acute) Acute exacerbation of chronic low back pain (Acute) Plan of Treatment: Continue with present treatment and follow up plan. Pt is to keep follow up appointment as instructed and take medications as ordered. Discharge Medications Discharge Medications: No Known Allergies Allergy (Verified 06/01/24 14:25) CONTINUE taking the following medications aspirin 81 mg tablet,delayed release 81 mg PO QDAY 06/01/24 [History] atorvastatin 10 mg tablet 10 mg PO QDAY 06/01/24 [History] cholecalciferol (vitamin D3) 50 mcg (2,000 unit) tablet (Vitamin D3) 50 mcg PO QDAY 06/01/24 [History] furosemide 40 mg tablet (Lasix) 40 mg PO BID 06/01/24 [History] hydralazine 50 mg tablet 50 mg PO BID 06/01/24 [History] meloxicam 7.5 mg tablet 7.5 mg PO QDAY 06/01/24 [History] metformin 500 mg tablet 500 mg PO BID 06/01/24 [History] metoprolol succinate 50 mg capsule sprinkle, ext. release 24 hr 50 mg PO BID 06/01/24 [History] plknurhs-ya-zzxra 300 mcg-K 60 mcg-lycop 600 mcg-lutein 300 mcg tablet (Centrum Silver Men) 1 tab PO QDAY 06/01/24 [History] pantoprazole 40 mg tablet,delayed release 40 mg PO QDAY 06/01/24 [History] sacubitril 97 mg-valsartan 103 mg tablet (Entresto) 1 tab PO BID 06/01/24 [History] tamsulosin 0.4 mg capsule 0.4 mg PO QHS 06/01/24 [History] New Prescriptions cefdinir 300 mg capsule 300 mg PO BID 5 days #10 caps 06/04/24 [Rx] levalbuterol tartrate 45 mcg/actuation aerosol inhaler (Xopenex HFA) 2 inh inhalation Q6H PRN shortness of breath or wheezing #15 grams 06/04/24 [Rx] Discharge Disposition Discharge Disposition: To home Discharge Condition: Stable Discharge Plan Discharge Plan Hospital Course: Mr. Harrell is a 84-year-old male who presented with chest congestion, sore throat and vomiting. He was found to be positive for COVID infection. He was admitted to the ICU for further evaluation. He was started on supportive care with nebs, empiric antibiotics and cough medicine. He was doing well, did not require any oxygen. His labs were monitored daily and electrolytes were replaced as needed. He was ambulating in the room and tolerating p.o. intake. He was stable to be discharged home. Will follow-up with PCP as scheduled. Patient Disposition: 01 HOME, SELF-CARE Condition: Stable Health Concerns: Post Hospitalization: new medications and changes needed to prevent readmission or further decline. Pt educated and given instructions on all concerns. Care Plan Goals: Problem: Respiratory Complications Goal: Improved Uncomplicated Respiratory Status Instructions: Follow provided instructions. Follow up with primary physician as directed. Contact primary care physician or report to the closest Emergency Room if condition worsens. Plan of Treatment: Continue with present treatment and follow up plan. Pt is to keep follow up appointment as instructed and take medications as ordered. Prescription drug monitoring program results: PDMP reviewed and no concerns identified Prescriptions: New cefdinir 300 mg capsule 300 mg PO BID 5 Days Qty: 10 0RF levalbuterol tartrate [Xopenex HFA] 45 mcg/actuation HFA aerosol inhaler 2 inh inhalation Q6H PRN (Reason: shortness of breath or wheezing) Qty: 15 0RF Continued furosemide [Lasix] 40 mg Tablet 40 mg PO BID metformin 500 mg Tablet 500 mg PO BID atorvastatin 10 mg Tablet 10 mg PO QDAY aspirin 81 mg Tablet,Delayed Release (Dr/Ec) 81 mg PO QDAY meloxicam 7.5 mg Tablet 7.5 mg PO QDAY tamsulosin 0.4 mg Capsule 0.4 mg PO QHS pantoprazole 40 mg Tablet,Delayed Release (Dr/Ec) 40 mg PO QDAY hydralazine 50 mg Tablet 50 mg PO BID cholecalciferol (vitamin D3) [Vitamin D3] 50 mcg (2,000 unit) Tablet 50 mcg PO QDAY Centrum Silver Men [id number] mcg Tablet 1 tab PO QDAY Entresto 97-103 mg Tablet 1 tab PO BID metoprolol succinate 50 mg Capsule,Sprinkle,Er 24hr 50 mg PO BID No Action atorvastatin 10 mg tablet 10 mg PO QDAY digoxin 250 mcg (0.25 mg) tablet 0.25 mg PO HS levothyroxine 75 mcg tablet 75 mcg PO QDAY meloxicam 7.5 mg tablet 7.5 mg PO QDAY tamsulosin 0.4 mg capsule 0.4 mg PO QDAY pantoprazole 40 mg tablet,delayed release (DR/EC) 40 mg PO QDAY losartan 100 mg tablet 100 mg PO QDAY metformin 500 mg tablet extended release 24 hr 500 mg PO BID diltiazem HCl 180 mg Capsule,Extended Release 24 Hr 180 mg PO QDAY Qty: 30 1RF Rx Instructions: take one capsule daily Orders to Discharge Patient Discharge Orders: Discharge (Routine); Ordered 06/04/24 Ordered By: Nicol Wang Follow ups/Referrals Follow ups/Referrals: Chad eGorge [Primary Care Provider] - 06/10/24 11:10 am Instructions Instructions: COVID-19, Preventing Heart Failure, Living With Heart Failure, Community-Acquired Pneumonia, Adult, [id number] Stand Alone Forms: Post Hospital Follow Up Care
== END 2024-06-04 16:10 | disposition home or self-care (01) ==
LOC: ER 14:25 → ICU 14:25 → MERGE 19:19 → ICU 20:55
PROVIDERS: ADMIT Internal Medicine; ATTEND Internal Medicine
DX: I11.0 Hypertensive heart disease with heart failure; Z29.89 Encounter for other specified prophylactic measures; J12.82 Pneumonia due to coronavirus disease 2019; R94.31 Abnormal electrocardiogram [ECG] [EKG]; R06.02 Shortness of breath; Z66 Do not resuscitate; R79.89 Other specified abnormal findings of blood chemistry; R53.1 Weakness; I25.10 Atherosclerotic heart disease of native coronary artery without angina pectoris; U07.1 COVID-19; I50.9 Heart failure, unspecified